=== PATIENT | female | born 2000 | race Caucasian/White ===

== ENCOUNTER 2024-04-16 17:11 | Outpatient (REF) | payer MEDICAID, SELFPAY ==
--- NOTE | 2024-04-16 13:45 | PAPFT_PTH ---
PATIENT: Leslye Ordoñez LOC: [facility] U#:[id number] AGE/SX: 23/F ROOM: RE04/16/[address]: Tsering Salinas : 2000 BED: DIS: 04/16/2024 SPEC #: [id number] RECD: 04/16/24 18:12 STATUS: KINGSLEY REQ #: [id number] XIAO: 04/16/24 13:[address]: Tsering Salinas DEPT: [facility] Cytology RECD BY: Linsey Asif ENTERED: 04/16/24 18:12 SP TYPE: PAPFT OTHR DR: Unknown,Unknown Tissues: 1 - CX/ENDOCX FOR PAP SMEARS Procedures: PAP THIN PREP/[facility] Screening Comments: [id number]
[2024-04-16 18:17] LABS: *AMPHETAMINES SCREEN URINE Negative (Negative); *BARBITURATES SCREEN URINE Negative (Negative); *BENZODIAZEPINES SCREEN URINE Negative (Negative); Cannabinoids THC Positive (Negative); Cocaine Screen,Urine Negative (Negative); METHADONE URINE SCREEN Negative (Negative); OPIATES URINE SCREEN Negative (Negative)
[2024-04-16 18:24] LABS: Tricyclic Antidepressants Negative (Negative)
[2024-04-18 14:05] LABS: Chlamydia Result Negative (Negative); GC Result Negative (Negative)
[2024-04-20 10:05] LABS: Fentanyl Scr w/Rfx Confirm Negative ng/mL (<1)
[2024-04-24 10:10] LABS: Buprenorphine Negative ng/mL (Cutoff: 5.0); Norbuprenorphine Negative ng/mL (Cutoff: 2.5)
== END 2024-04-16 17:12 | disposition home or self-care (01) ==
LOC: LBN 17:11
PROVIDERS: Visit Provider Advanced Practice Midwife
DX: F12.90 Cannabis use, unspecified, uncomplicated (principal); Z34.91 Encounter for supervision of normal pregnancy, unspecified, first trimester; Z3A.22 22 weeks gestation of pregnancy
CPT/HCPCS: 80307; 80348; 87491; 87591; 88142; 87086; 87480; 87510; 87660

== ENCOUNTER 2024-04-16 20:15 | Outpatient (CLI) | payer MEDICAID, SELFPAY | END 2024-04-16 20:16 | disposition home or self-care (01) | LOC: LBO 20:16 | PROVIDERS: Visit Provider Advanced Practice Midwife | DX: Z34.92 Encounter for supervision of normal pregnancy, unspecified, second trimester (principal); Z3A.22 22 weeks gestation of pregnancy | CPT/HCPCS: 36415; 81220; 81222; 86787; 86803; 86850; 86900; 86901; 87340; 87389; 85025; 86762; 86780 ==

== ENCOUNTER 2024-05-29 01:54 | Outpatient (CLI) | payer MEDICAID, SELFPAY ==
--- OUTSIDE RECORDS SUMMARY | 2024-05-29 02:17 | XMS_ITS | Clinical Summary ---
Author Organization [facility] Address [address] [place] [address] Care Team Providers Care [employer] Principal Name Role Phone Unavailable Primary Care Provider Unavailabl e Encounters Date Type Department Care Team Description 04/17/2024 Lab Requisition [facility] Pathology & Laboratory [address] [address] Tsering Salinas CNM Encounter for supervision of normal , unspecified, unspecified trimester 04/17/2024 Lab Requisition [facility] Pathology Laboratory [address] [address] Outr Resulting Lab, Provider 04/17/2024 Lab Requisition [facility] Pathology & Laboratory [address] [address] Outr Resulting Lab, Provider 04/16/2024 Lab Requisition [facility] Pathology Laboratory [address] [address] Outr Resulting Lab, Provider 04/16/2024 Lab Requisition [facility] Pathology & Laboratory [address] [address] Outr Resulting Lab, Provider 04/16/2024 Lab Requisition [facility] Pathology & Laboratory [address] [address] Outr Resulting Lab, Provider from Last 3 Months Social History Tobacco Use Types Packs/Day Years Used Date Smoking Tobacco: Never Assessed Sex and Gender Information Value Date Recorded Sex Assigned at Not on file Gender Identity Not on file Sexual Orientation Not on file Plan of Treatment Health Maintenance Due Date Last Done Comments Hepatitis B Vaccine (1 of 3 - 19+ 3-dose series) 09/20 COVID-19 Vaccine (2022-24 season) 2023 Hepatitis C Screen Completed 04/16/2024 Procedures Procedure Name Priority Date/Time Associated Diagnosis Comments HEPATITIS B SURFACE ANTIGEN Routine 04/16/2024 14:17 EDT HEPATITIS C AB W REFLEX TO HCV RNA BY PCR Routine 04/16/2024 14:17 EDT VARICELLA IGG ANTIBODY Routine 04/16/2024 14:17 EDT RUBELLA IGG ANTIBODY Routine 04/16/2024 14:17 EDT HIV 1/2 ANTIGEN AND ANTIBODY, 4TH GENERATION Routine 04/16/2024 14:17 EDT PAP TEST Today 04/16/2024 13:45 EDT Encounter for supervision of normal , unspecified, unspecified trimester FENTANYL SCREEN WITH REFLEX TO CONFIRMATION, U Routine 04/16/2024 13:30 EDT CHLAMYDIA/N. GONORRHOEAE AMPLIFIED NUCLEIC ACID Routine 04/16/2024 13:30 EDT from Last 3 Months Results * HEPATITIS C AB W REFLEX TO HCV RNA BY PCR (04/16/2024 14:17 EDT) Hep C Antibody Negative Negative 04/17/2024 9:34 EDT [facility] Blood VENOUS BLOOD / Unknown 04/16/2024 14:17 EDT 04/16/2024 21:49 EDT Provider Outr Resulting Lab CHEMISTRY & BLOOD GAS ORDERABLES [facility] [address] [place] [address] * RUBELLA IGG ANTIBODY (04/16/2024 14:17 EDT) Rubella IgG Ab Positive See Note 04/17/2024 13:34 EDT [facility] Comment:Positive for IgG ant ibodies to Rubella virus. Blood VENOUS BLOOD / Unknown 04/16/2024 14:17 EDT 04/16/2024 21:49 EDT Provider Outr Resulting Lab CHEMISTRY & BLOOD GAS ORDERABLES Performing Organization Address [facility] Co de Phone Number [facility] [address], [place] [phone] * HEPATITIS B SURFACE ANTIGEN (04/16/2024 14:17 EDT) Hep B Surface Ag Negative Negative 04/17/2024 8:52 EDT [facility] Blood VENOUS BLOOD / Unknown 04/16/2024 14:17 EDT 04/16/2024 21:49 EDT Provider Outr Resulting Lab CHEMISTRY & BLOOD GAS ORDERABLES Performing Organization Address [facility] Phone Number [facility] [address] [place] [phone] * VARICELLA IGG ANTIBODY (04/16/2024 14:17 EDT) Pathologist [facility] Varicella IgG Ab Negative See Note 04/17/2024 13:28 EDT [facility] Comment:Absence of detectabl e Varicella Zoster virus IgG antibodies. A negative result generally indicates no detectable antibody, but does not rule out acute infection. If VZV exposure is suspected, a second sample should be collected and tested no less than one or two weeks later. Blood VENOUS BLOOD / Unknown 04/16/2024 14:17 EDT 04/16/2024 21:49 EDT Provider Outr Resulting Lab IMMUNOLOGY A ND SEROLOGY ORDERABLES Performing Organization Address [facility] Co de Phone Number [facility] [address] [place] [phone] * HIV 1/2 ANTIGEN AND ANTIBODY, 4TH GENERATION (04/16/2024 14:17 EDT) Pathologist [facility] HIV 1 and 2 Antibody/p24 Antigen, 4th Generation Negative Negative 04/16/2024 23:30 EDT [facility] Comment:If acute HIV-1 infec tion is suspected in a high risk patient, submit plasma specimen for HIV-1 RNA quantitation test. Blood VENOUS BLOOD / Unknown 04/16/2024 14:17 EDT 04/16/2024 21:49 EDT Narrative [facility] - 04/16/2024 23:30 EDT Fourth Generation assay performed on the Siemens Centaur XPT. Provider Outr Resulting Lab IMMUNOLOGY A ND SEROLOGY ORDERABLES Performing Organization Address City/[facility]/ZIP Co de Phone Number [facility] [address] [place] [address] * PAP TEST (04/16/2024 13:45 EDT) Specimens A. Cervix and/or Endocervix , ThinPrep Imaging System with Manual Evaluation 04/22/2024 15:31 EDT [facility] Specimen Adequacy Satisfactory for Evaluation - transformation zone component absent 04/22/2024 15:31 EDT [facility] General Categorization Negative for intraepithelial lesion or malignancy 04/22/2024 15:31 EDT [facility] Attestation . 04/22/2024 15:31 T [facility] at 1531 Clinical History See below 04/22/20 15:31 EDT [facility] Performing Lab [facility] LAB 04/22/2024 15:31 EDT [facility] Scanned Images 04/22/2024 15:31 EDT [facility] Pap Test CERVIX UTERI STRUCTURE / Unknown 04/16/2024 13:45 EDT 04/17/2024 15:01 EDT Tsering Salinas [facility]Y ORDE ALESSANDRA Performing Organization Address City/[facility]/ZIP Co de Phone Number [facility] [address] [place] [address] * FENTANYL SCREEN WITH REFLEX TO CONFIRMATION, U (04/16/2024 13:30 EDT) Fentanyl Screen with Reflex to Confirmation, U Negative <1 ng/mL 04/20/2024 9:59 EDT [facility] Urine URINE / Unknown 04/16/2024 1 3:30 EDT 04/17/2024 17:31 EDT Narrative [facility] - 04/20/2024 9:59 EDT Testing performed by: [facility] [address] [facility], [address], [place] [address] Clothing Pattern Preparer: Karthik Joseph MD; CLIA # [id number] Provider Outr Resulting Lab URINALYSIS O RDERABLES Performing Organization Address City/[facility]/ZIP Co de Phone Number [facility] [address] [place] [address], [facility] [address] [phone] * CHLAMYDIA/N. GONORRHOEAE AMPLIFIED RNA (04/16/2024 13:30 EDT) Neisseria gonorrhoeae Result Negative Negative 04/18/2024 14:00 EDT [facility] Chlamydia trachomatis Result Negative Negative 04/18/2024 14:00 EDT [facility] Swab ENDOCERVICAL STRUCTURE / Unknown 04/16/2024 13:30 EDT 04/17/2024 17:40 EDT Provider Outr Resulting Lab MICROBIOLOGY - GENERAL ORDERABLES [facility] [address] [place] [address] from Last 3 Months
--- OUTSIDE RECORDS SUMMARY | 2024-05-29 02:17 | XMS_ITS | Encounter Summary ---
Author Organization [facility] Address [address] [place] [address] Care Team Providers Care Senior Safety Management Consultant Name Role Phone Unavailable Primary Care Provider Unavailabl e Encounter Details Date Type Department Care Team (Late st Contact Info) Description 04/17/2024 Lab Requisition [facility] Pathology & [facility] [address] [place] [address] [place], [place] [phone] Encounter for supervision of normal , unspecified, unspecified trimester Social History Tobacco Use Types Packs/Day Years Used Date Smoking Tobacco: Never Assessed Sex and Gender Information Value Date Recorded Sex Assigned at Not on file Gender Identity Not on file Sexual Orientation Not on file documented as of this encounter Plan of Treatment Not on file documented as of this encounter Procedures Procedure Name Priority Date/Time Associated Diagnosis Comments PAP TEST Today 04/16/2024 13:45 EDT Encounter for supervision of normal , unspecified, unspecified trimester documented in this encounter Results * PAP TEST (04/16/2024 13:45 EDT) Specimens A. Cervix and/or Endocervix , ThinPrep Imaging System with Manual Evaluation 04/22/2024 15:31 [facility] Specimen Adequacy Satisfactory for Evaluation - transformation zone component absent 04/22/2024 15:31 [facility] General Categorization Negative for intraepithelial lesion or malignancy 04/22/2024 15:31 [facility] Attestation . 04/22/2024 15:31 [facility] at 1531 Clinical History See below 06/19/20 24 15:31 [facility] Performing Lab [facility] 04/22/2024 15:31 EDT [facility] Scanned Images 04/22/2024 15:31 EDT [facility] Pap Test CERVIX UTERI STRUCTURE / Unknown 04/16/2024 13:45 EDT 04/17/2024 15:01 EDT Tsering Salinas [facility] PATHOLOGY ALEXANDRA APARICIO [facility] [address] [place] [address] documented in this encounter Visit Diagnoses Diagnosis Encounter for supervision of normal , unspecified, unspecified trimester documented in this encounter
--- OUTSIDE RECORDS SUMMARY | 2024-05-29 02:17 | XMS_ITS | Encounter Summary ---
Author Organization [facility] Address [address] [place] [address] Care Team Providers Care Cycle Repairer Name Role Phone Unavailable Primary Care Provider Unavailabl e Encounter Details Date Type Department Care Team (Late st Contact Info) Description 04/16/2024 Lab Requisition [facility] Pathology & Laboratory Medicine - [address] [address] Outr Resulting Lab, Provider Social History Tobacco Use Types Packs/Day Years Used Date Smoking Tobacco: Never Assessed Sex and Gender Information Value Date Recorded Sex Assigned at Not on file Gender Identity Not on file Sexual Orientation Not on file documented as of this encounter Plan of Treatment Not on file documented as of this encounter Procedures Procedure Name Priority Date/Time Associated Diagnosis Comments RUBELLA IGG ANTIBODY Routine 04/16/2024 14:17 EDT VARICELLA IGG ANTIBODY Routine 04/16/2024 14:17 EDT documented in this encounter Results * VARICELLA IGG ANTIBODY (04/16/2024 14:17 EDT) Varicella IgG Ab Negative See Note 04/17/2024 13:28 EDT [facility] Comment:Absence of detectabl e Varicella [...] Resulting Lab IMMUNOLOGY A ND SEROLOGY ORDERABLES [facility] [address] [place], [place] [phone] * RUBELLA IGG ANTIBODY (04/16/2024 14:17 EDT) Rubella IgG Ab Positive See Note 04/17/2024 13:34 EDT [facility] Comment:Positive for IgG ant ibodies to Rubella virus. Blood VENOUS BLOOD / Unknown 04/16/2024 14:17 EDT 04/16/2024 21:49 EDT Provider Outr Resulting Lab CHEMISTRY & BLOOD GAS ORDERABLES [facility] [address] [place], [place] [phone] documented in this encounter Visit Diagnoses Not on filedocumented in this encounter
--- OUTSIDE RECORDS SUMMARY | 2024-05-29 02:17 | XMS_ITS | Encounter Summary ---
Author Organization [facility] Address [address] [place] [address] Care Team Providers Care Geotechnical Operating Engineer Name Role Phone Unavailable Primary Care Provider Unavailabl e Encounter Details Date Type Department Care Team (Late st Contact Info) Description 04/16/2024 Lab Requisition [facility] Pathology & Laboratory Medicine - [address] [address] Outr Resulting Lab, Provider Social History Tobacco [...] Name Priority Date/Time Associated Diagnosis Comments HEPATITIS C AB W REFLEX TO HCV RNA BY PCR Routine 04/16/2024 14:17 EDT HEPATITIS B SURFACE ANTIGEN Routine 04/16/2024 14:17 EDT documented in this encounter Results * HEPATITIS B SURFACE ANTIGEN (04/16/2024 14:17 EDT) Hep B Surface Ag Negative Negative 04/17/2024 8:52 EDT [facility] Blood VENOUS BLOOD / Unknown 04/16/2024 14:17 EDT 04/16/2024 21:49 EDT Provider Outr Resulting Lab CHEMISTRY & BLOOD GAS ORDERABLES [facility] [address] [place], [place] [phone] * HEPATITIS C AB W REFLEX TO HCV RNA BY PCR (04/16/2024 14:17 EDT) Hep C Antibody Negative Negative 04/17/2024 9:34 EDT [facility] Blood VENOUS BLOOD / Unknown 04/16/2024 14:17 EDT 04/16/2024 21:49 EDT Provider Outr Resulting Lab CHEMISTRY & BLOOD GAS ORDERABLES [facility] [address] [place] [address] documented in this encounter Visit Diagnoses Not on filedocumented in this encounter
--- OUTSIDE RECORDS SUMMARY | 2024-05-29 02:17 | XMS_ITS | Referral Summary ---
Author Organization [facility] Address [address] [place] [address] Care Team Providers Care Saddle And Side Wire Stitcher Name Role Phone Unavailable Primary Care Provider Unavailabl e Encounters Date Type Department Care Team Description 04/17/2024 Lab Requisition [facility] Pathology & Laboratory [address] [address] Tsering Salinas CNM Encounter for supervision of normal , unspecified, unspecified trimester 04/17/2024 Lab Requisition [facility] Pathology & Laboratory [address] [address] Outr Resulting Lab, Provider 04/17/2024 Lab Requisition [facility] Pathology & Laboratory [address] [address] Outr Resulting Lab, Provider 04/16/2024 Lab Requisition [facility] Pathology Laboratory [address] [address] Outr Resulting Lab, Provider 04/16/2024 Lab Requisition [facility] Pathology & Laboratory [address] [address] Outr Resulting Lab, Provider 04/16/2024 Lab Requisition [facility] Pathology & Laboratory [address] [address] Outr Resulting Lab, Provider from Last 3 Months Social History Tobacco Use Types Packs/Day Years Used Date Smoking Tobacco: Never Assessed Sex and Gender Information Value Date Recorded Sex Assigned at Not on file Gender Identity Not on file Sexual Orientation Not on file Plan of Treatment Not on file Procedures Procedure Name Priority Date/Time Associated Diagnosis [...] C Antibody Negative Negative 04/17/2024 9:34 EDT [facility] Blood VENOUS BLOOD / Unknown 04/16/2024 14:17 EDT 04/16/2024 21:49 EDT Provider Outr Resulting Lab CHEMISTRY & BLOOD GAS ORDERABLES [facility] [address] [place] [address] * RUBELLA IGG ANTIBODY (04/16/2024 14:17 EDT) Rubella IgG Ab Positive See Note 04/17/2024 13:34 EDT [facility] Comment:Positive for IgG ant ibodies to Rubella virus. Blood VENOUS BLOOD / Unknown 04/16/2024 14:17 EDT 04/16/2024 21:49 EDT Provider Outr Resulting Lab CHEMISTRY & BLOOD GAS ORDERABLES Performing Organization Address [facility] Co de Phone Number [facility] [address] [place] [address] * HEPATITIS B SURFACE ANTIGEN (04/16/2024 14:17 EDT) Pathologist [facility] Hep B Surface Ag Negative Negative 04/17/2024 8:52 EDT [facility] Blood VENOUS BLOOD / Unknown 04/16/2024 14:17 EDT 04/16/2024 21:49 EDT Provider Outr Resulting Lab CHEMISTRY & BLOOD GAS ORDERABLES Performing Organization Address [facility] de Phone Number [facility] [address] [place] [address] * VARICELLA IGG ANTIBODY (04/16/2024 14:17 EDT) [facility] Varicella IgG Ab Negative See Note 04/17/2024 13:28 EDT [facility] Comment:Absence of detectabl e [...] A ND SEROLOGY ORDERABLES Performing Organization Address [facility] Co de Phone Number [facility] [address] [place], [place] [address] * HIV 1/2 ANTIGEN AND ANTIBODY, 4TH GENERATION (04/16/2024 14:17 EDT) Pathologist [facility] HIV 1 and 2 Antibody/p24 Antigen, 4th Generation Negative Negative 04/16/2024 23:30 EDT [facility] Comment:If acute HIV-1 infec tion is suspected in a high risk patient, submit plasma specimen for HIV-1 RNA quantitation test. Blood VENOUS BLOOD / Unknown 04/16/2024 14:17 EDT 04/16/2024 21:49 EDT Narrative [facility] - 04/16/2024 23:30 EDT Fourth Generation assay performed on the Siemens [place] EXTENDED STAYSaur XPT. Provider Outr Resulting Lab IMMUNOLOGY A ND SEROLOGY ORDERABLES Performing Organization Address [facility]/ZIP Co de Phone Number [facility] [address] [place] [address] * PAP TEST (04/16/2024 13:45 EDT) Specimens A. Cervix and/or Endocervix , ThinPrep Imaging System with Manual Evaluation 04/22/2024 15:31 EDT [facility] Specimen Adequacy Satisfactory for Evaluation - transformation zone component absent 04/22/2024 15:31 EDT [facility] General Categorization Negative for intraepithelial lesion or malignancy 04/22/2024 15:31 EDT [facility] Attestation . 04/22/2024 15:31 EDT [facility] at 1531 Clinical History See below 04/22/20 15:31 T [facility] Performing Lab [facility] [[email or web address] LAB 04/22/2024 15:31 T [facility] Scanned Images 04/22/2024 15:31 T [facility] Pap Test CERVIX UTERI STRUCTURE / Unknown 04/16/2024 13:45 EDT 04/17/2024 15:01 EDT Tsering Salinas [facility] PATHOLOGY ORDMarysol APARICIO Performing Organization Address [facility]/ZIP Co de Phone Number [facility] [address] [place] [address] * FENTANYL SCREEN WITH REFLEX TO CONFIRMATION, U (04/16/2024 13:30 EDT) Fentanyl Screen with Reflex to Confirmation, U Negative <1 ng/mL 04/20/2024 9:59 EDT [facility] Urine URINE / Unknown 04/16/2024 1 3:30 EDT 04/17/2024 17:31 EDT Narrative [facility] - 04/20/2024 9:59 EDT Testing performed by: [facility] [address], [address], [place] [address] Program Manager Rn: Karthik Joseph MD; CLIA # [id number] Provider Outr Resulting Lab URINALYSIS O RDERABLES [facility] [address] [place] [address], [facility] [address] [phone] * CHLAMYDIA/N. GONORRHOEAE AMPLIFIED RNA (04/16/2024 13:30 EDT) Neisseria gonorrhoeae Result Negative Negative 04/18/2024 14:00 EDT [facility] Chlamydia trachomatis Result Negative Negative 04/18/2024 14:00 EDT [facility] Swab ENDOCERVICAL STRUCTURE / Unknown 04/16/2024 13:30 EDT 04/17/2024 17:40 EDT Provider Outr Resulting Lab MICROBIOLOGY - GENERAL ORDERABLES [facility] [address] [place] [address] from Last 3 Months
--- OUTSIDE RECORDS SUMMARY | 2024-05-29 02:17 | XMS_ITS | Encounter Summary ---
Author Organization [facility] Address [address] [place] [id number] Care Team Providers Care Roofer Apprentice Name Role Phone Unavailable Primary Care Provider Unavailabl e Encounter Details Date Type Department Care Team (Late st Contact Info) Description 04/16/2024 Lab Requisition [facility] Pathology & Laboratory Medicine - [address] [address] Outr Resulting Lab, Provider Social History Tobacco [...] Procedure Name Priority Date/Time Associated Diagnosis Comments HIV 1/2 ANTIGEN AND ANTIBODY, 4TH GENERATION Routine 04/16/2024 14:17 EDT documented in this encounter Results * HIV 1/2 ANTIGEN AND ANTIBODY, 4TH GENERATION (04/16/2024 14:17 EDT) HIV 1 and 2 Antibody/p24 Antigen, 4th Generation Negative Negative 04/16/2024 23:30 EDT [facility] Comment:If acute HIV-1 infec tion is suspected in a high risk patient, submit plasma specimen for HIV-1 RNA quantitation test. Blood VENOUS BLOOD / Unknown 04/16/2024 14:17 EDT 04/16/2024 21:49 EDT Narrative [facility] - 04/16/2024 23:30 EDT Fourth Generation assay performed on the Siemens Centaur XPT. Provider Outr Resulting Lab IMMUNOLOGY A ND SEROLOGY ORDERABLES [facility] [address] [place] [address] documented in this encounter Visit Diagnoses Not on filedocumented in this encounter
--- OUTSIDE RECORDS SUMMARY | 2024-05-29 02:17 | XMS_ITS | Encounter Summary ---
Author Organization [facility] Address [address] [place] [address] Care Team Providers Care Cementer Helper Name Role Phone Unavailable Primary Care Provider Unavailabl e Encounter Details Date Type Department Care Team (Late st Contact Info) Description 04/17/2024 Lab Requisition [facility] Pathology & Laboratory Medicine - [facility] [address] [place], [place] [phone] Outr Resulting Lab, Provider Social History Tobacco [...] Procedure Name Priority Date/Time Associated Diagnosis Comments CHLAMYDIA/N. GONORRHOEAE AMPLIFIED NUCLEIC ACID Routine 04/16/2024 13:30 EDT documented in this encounter Results * CHLAMYDIA/N. GONORRHOEAE AMPLIFIED RNA (04/16/2024 13:30 EDT) Neisseria gonorrhoeae Result Negative Negative 04/18/2024 14:00 EDT [facility] Chlamydia trachomatis Result Negative Negative 04/18/2024 14:00 EDT [facility] Swab ENDOCERVICAL STRUCTURE / Unknown 04/16/2024 13:30 EDT 04/17/2024 17:40 EDT Provider Outr Resulting Lab MICROBIOLOGY - GENERAL ORDERABLES [facility] [address] [place], [place] [address] documented in this encounter Visit Diagnoses Not on filedocumented in this encounter
--- OUTSIDE RECORDS SUMMARY | 2024-05-29 02:17 | XMS_ITS | Encounter Summary ---
Author Organization [facility] Address [address] [place] [address] Care Team Providers Care Working Foreman Name Role Phone Unavailable Primary Care Provider Unavailabl e Encounter Details Date Type Department Care Team (Late st Contact Info) Description 04/17/2024 Lab Requisition [facility] Pathology & Laboratory Medicine - [facility] [address] [place] [address] Outr Resulting Lab, Provider Social History Tobacco [...] Procedure Name Priority Date/Time Associated Diagnosis Comments FENTANYL SCREEN WITH REFLEX TO CONFIRMATION, U Routine 04/16/2024 13:30 EDT documented in this encounter Results * FENTANYL SCREEN WITH REFLEX TO CONFIRMATION, U (04/16/2024 13:30 EDT) Fentanyl Screen with Reflex to Confirmation, U Negative <1 ng/mL 04/20/2024 9:59 EDT [facility] Urine URINE / Unknown 04/16/2024 1 3:30 EDT 04/17/2024 17:31 EDT Narrative [facility] - 04/20/2024 9:59 EDT Testing performed by: [facility] [address] [place] [address], [facility] [address] [address] Time Clock Repairer: Karthik Joseph MD; CLIA # [id number] Provider Outr Resulting Lab URINALYSIS O RDERABLES [facility] [address] [facility], [address] [phone] documented in this encounter Visit Diagnoses Not on filedocumented in this encounter
[2024-05-29 09:53] LABS: HCT 33.5 % (36.0-46.0); HGB 11.2 g/dL (11.2-15.7); MCH 33.4 pg (27.0-33.0); MCHC 33.4 % (32.0-36.0); MCV 100 fL (80-95); MPV 10.1 fL (8.0-11.0); Platelet Count 266 10^3/uL (130-400); RBC 3.35 10^6/uL (3.93-5.22); RDW 12.9 % (11.7-14.6); RDW-SD 46.7 fL; WBC 13.27 10^3/uL (4.4-10.8)
[2024-05-29 10:08] LABS: Glucose,1 Hr (Glucola) 88 mg/dL (80-140)
== END 2024-05-29 01:55 | disposition home or self-care (01) ==
LOC: LBO 01:55
PROVIDERS: Visit Provider Obstetrics & Gynecology Gynecology
DX: Z34.93 Encounter for supervision of normal pregnancy, unspecified, third trimester (principal)
CPT/HCPCS: 36415; 82950; 85027

== ENCOUNTER 2024-05-29 09:14 | Outpatient (REF) | payer MEDICAID, SELFPAY ==
[2024-05-29 12:18] LABS: *AMPHETAMINES SCREEN URINE Negative (Negative); *BARBITURATES SCREEN URINE Negative (Negative); *BENZODIAZEPINES SCREEN URINE Negative (Negative); Cannabinoids THC Positive (Negative); Cocaine Screen,Urine Negative (Negative); METHADONE URINE SCREEN Negative (Negative); OPIATES URINE SCREEN Negative (Negative)
[2024-05-29 12:27] LABS: Tricyclic Antidepressants Negative (Negative)
[2024-06-01 09:41] LABS: Fentanyl Scr w/Rfx Confirm Negative ng/mL (<1)
[2024-06-06 12:59] LABS: Buprenorphine Negative ng/mL (Cutoff: 5.0); Norbuprenorphine Negative ng/mL (Cutoff: 2.5)
== END 2024-05-29 09:15 | disposition home or self-care (01) ==
LOC: LBN 09:14
PROVIDERS: Advanced Practice Midwife; Visit Provider Obstetrics & Gynecology
DX: Z34.90 Encounter for supervision of normal pregnancy, unspecified, unspecified trimester (principal)
CPT/HCPCS: 80307; 80348

== ENCOUNTER 2024-07-16 15:21 | Outpatient (REF) | payer MEDICAID, SELFPAY | END 2024-07-16 15:22 | disposition home or self-care (01) | LOC: LBN 15:21 | PROVIDERS: Visit Provider Advanced Practice Midwife | DX: Z34.93 Encounter for supervision of normal pregnancy, unspecified, third trimester (principal); Z3A.35 35 weeks gestation of pregnancy | CPT/HCPCS: 87081 ==

== ENCOUNTER 2024-07-24 14:41 | Outpatient (REF) | payer MEDICAID, SELFPAY ==
[2024-07-24 17:30] LABS: *AMPHETAMINES SCREEN URINE Negative (Negative); *BARBITURATES SCREEN URINE Negative (Negative); *BENZODIAZEPINES SCREEN URINE Negative (Negative); Cannabinoids THC Negative (Negative); Cocaine Screen,Urine Negative (Negative); METHADONE URINE SCREEN Negative (Negative); OPIATES URINE SCREEN Negative (Negative); Tricyclic Antidepressants Negative (Negative)
== END 2024-07-24 14:42 | disposition home or self-care (01) ==
LOC: LBN 14:41
PROVIDERS: Visit Provider Advanced Practice Midwife
DX: F12.90 Cannabis use, unspecified, uncomplicated (principal)
CPT/HCPCS: 80307

== ENCOUNTER 2024-08-13 01:05 | Outpatient (CLI) | payer MEDICAID, SELFPAY ==
--- NOTE | 2024-08-13 12:24 | DI.US_ITS ---
Exam(s) US OB ASHISH WEIGHT EXAM: US OB ASHISH WEIGHT CLINICAL HISTORY: size greater than dates,Z34.90. TECHNIQUE: Transabdominal obstetrical ultrasound was performed. COMPARISON: US US OB 2-3 TRIMESTER from 04/21/2024 FINDINGS: There is a single viable intrauterine gestation with cardiac activity identified-140 bpm The fetus is presently in cephalic position . Amniotic fluid: There is a normal amount of amniotic fluid with an ASHISH of 14.45cm. Placental location: The placenta is posterior,with no evidence of placenta previa. Dating parameters place this at approximately 38 weeks and 6 days gestational age, implying JOSELITO of 08/21/2024. BPD measures 39 weeks and 1 day HC measures 37 weeks and 6 days AC measures 39 weeks and 1 day FL measures 39 weeks and 3 days Estimated weight is 3684 gm-a pounds 2 ounces Fetus is at the 62nd percentile on the Hadlock scale. IMPRESSION:: Viable 3rd trimester gestation, as described above. DATA REPOSITORY:
[2024-08-23 11:29] VITALS: BP 125/77; PULSE 95; TEMP 36.8
== END 2024-08-13 01:25 ==
LOC: DI 01:05
PROVIDERS: Visit Provider Advanced Practice Midwife
DX: Z34.93 Encounter for supervision of normal pregnancy, unspecified, third trimester (principal); Z3A.37 37 weeks gestation of pregnancy
CPT/HCPCS: 76816

== ENCOUNTER 2024-08-23 11:40 | Observation (INO) | payer MEDICAID, SELFPAY ==
[2024-08-23 11:45] VITALS: BP 125/77; PULSE 95; RESP 16; TEMP 36.8; O2SAT 99
--- NOTE | 2024-08-23 12:32 | HPE_ITS ---
Date of service: 08/23/24 Time of Service: 12:32 Assessment and Plan Assessment and plan (1) Uterine contractions: Status: Acute Assessment and plan: A: 23 yo G1 @ 41 wks, spontaneous onset contractions, early labor GBS neg, TWG 43 lb, nml glucola screen Low risk for PPH, increased risk for SD due to primipara, wt gain and postdates Category 1 tracing, poor maternal coping with discomforts P: Outpt observation for labor progression, oral hydration and comfort techniques Consider therapeutic rest vs early epidural if maternal coping further degenerates Due to postdate status may consider IOL when unit volume/acuity allows (2) 41 weeks gestation of : Status: Acute OB-HPI Labor/Delivery History of Present Illness Reason for Visit: NST Chief Complaint: Uterine Contractions (painful contractions since 0930 every 4-5 minutes, no bleeding, no ROM). JOSELITO Calculator Estimated Delivery Date Method Current WG Current Estimate 08/16/24 Ultrasound #1 41w 0d History of Present Expected Delivery Route/Plan - MAYRA LANGB/carolina Coles Varicella non -immune, pt plans vaccine Plans epidural & formula feeding (informed choice) support team is FOB and his mom Megan GBS negative Would like mirena IUD after delivery. Specific Issues/Plan 1. Late entry to care at 22 wks, taking oral contraceptives until 22 wks. 2. MJ use but quit, denies alcohol use, UDS +THC. Repeat @ 28 wks=THC+, POSC 06/26/24 2a, UDS at 36 wks is negative 3. cfDNA: low risk x5, gender not reported. CF: ordered but never processed and sent. 4. Growth scan @ 39 wks in 62nd percentile, ASHISH 14, cephalic presentation Assessment: History Reviewed & Current Review of Systems Narrative: ROS noncontributory other than HPI PFSH All Active Problems (Updated 08/23/24 @ 12:39 by Jayne De La Garza) 41 weeks gestation of (Acute) Uterine contractions (Acute) Susceptible to varicella (non-immune), currently (Acute) Marijuana use (Acute) Anxiety (Chronic) (Acute) Medical History (Updated 08/23/24 @ 12:39 by Jayne De La Garza) Asthma Family History (Updated 04/16/24 @ 13:06 by Tsering Salinas CNM) Maternal Aunt Breast cancer Mother Back pain Father Anxiety Social History (Updated 05/16/24 @ 11:13 by Che Escobar MD) Smoking risk assessment performed?: No Household members: significant other, family and other Details: Jose Angel, his aunt and her family. Number of Children: 0 Education Level: high school Details: didn't enjoy school-would read science fiction during math class. current occupation: [employer]. [place] between jobs. Additional Social history: Raised in [facility]. Mom when she was 11yo, drug related. She was oldest of 3 three siblings whom she took care of. Stepfather remarried and moved to [place]. Raised by [facility]. Met Terrance in , his dad when he was 11yo. They described themselves as initially trauma bud dies. His aunt moved to [place] and her and Leslye moved with them. History History 1 Para 0 Hx # Term Pregnancies 0 Multiple births 0 Hx # Pregnancies 0 Ectopic pregnancies 0 AB induced 0 Hx Number of Living Children 0 AB spontaneous 0 Meds Allergies and Home Medications Allergies Allergy/AdvReac Type Severity Reaction Status Date / Time No Known Allergies Allergy Verified 08/20/24 11:27 Home Medications ?Medication ?Instructions ?Recorded ?Confirmed ?Type vitamin with calcium 1 tab PO DAILY #90 tabs 06/26/24 08/23/24 Rx no.72-iron 27 mg-folic acid 1 mg tablet ( Plus (calcium carbonate)) Exam Physical Exam Vital Signs Reviewed: Yes Constitutional Constitutional: mild distress, average body habitus and cooperative Detailed Labor and Delivery Exam Dilation: 1 Effacement (%): 60 station: -2 Cervix position: posterior Consistency: medium Chiu Score: Cervical Points Exam 0 1 2 3 Dilation Closed 1-2cm 3-4 cm 5-6cm Effacement 0-30% 40-50% 60-70% 80% Consistency Firm Medium Soft Station -3 -2 -1,0 +1,+2 Position Posterior Mid Anterior CHIU Score(Cervical Ripeness Score): 5 Amniotic Membrane Status: Intact Contraction Frequency(min): irregular Contraction Intensity: Mild Fetus A Heart Rate Baseline: 140 Monitor Accelerations: Present Monitor Decelerations: None Variability: Moderate (6-25 BPM) Categories: Category I Est. Weight: 8 lb 7.805 oz Est. Weight: 3850 gms HEENT Exam HEENT Exam: Normal Neck Exam Neck Exam: Normal Chest/Brest/Axilla Exam Chest Exam: Normal Breast Exam Breast Exam: Not Done Respiratory Exam Respiratory Exam: Normal Cardiovascular Exam Cardiovascular Exam: Normal Abdominal Exam Abdominal Exam: Normal (gravid, soft) Rectal Exam Rectal Exam: Normal Exam Exam: Normal Extremities Exam Extremities Exam: Normal Back/Spine/Pelvis Exam Back Exam: Normal Pelvis Adequate: Yes Skin Exam Skin Exam: Normal Neurological Exam Neurological Exam: Normal Psychiatric Exam Psychiatric Exam: Normal Results Results Group Beta Strep: Negative Blood Type: B+ Rubella Status: Immune Varicella Immunity: Nonimmune Lab Results: 28 wk glucola=88 Risk Assessment Risk for Shoulder Dystocia Historical/Initial OB: NEGATIVE FOR: Pelvic Abnormality, Pre- BMI>30, Previous Shoulder Dystocia or Previous Macrosomia 36 Weeks: NEGATIVE FOR: Current Gestational DM, EFW>4500gms or Maternal Weight Gain>40lbs 40 Weeks: POSTIVE FOR: Maternal Weight Gain >40lb and Post Dates; NEGATIVE FOR: EFW> 4500 gms Increased Risk?: Yes Delivery Plan @ 36wks: Delivery Plan @ 40 wks: Risk for Pre-Eclampsia Yes, if one or more: NEGATIVE FOR: Hx Pre-E/Gest HTN, Chronic HTN, Multiple Gestation, Pre-gestational DM, Renal Disease, Systemic Lupus or APA Syndrome Yes, if 2 or more: POSITIVE FOR: Nulliparity; NEGATIVE FOR: Age>= 35 yrs, >10yr btwn pregnancies, BMI>30, ethinicty, Mother/Sister w/ Pre-E or Previous IUGR Risk for Post- Hemorrhage Initial: NEGATIVE FOR: Multiple Gestation, Previous PPH, Known Clotting Deficiency, Grand Multiparity or Anticoagulation 36 Weeks: NEGATIVE FOR: Anemia, hgb<10, Low platelets(thrombocytopenia), Gestational HTN or Pre-E, Polyhydraminios or EFW>4500gms 40 Weeks: NEGATIVE FOR: Anemia, hgb<10, Low platelets (thrombocytopenia), Gestation HTN or Pre-E, Polyhydraminios or EFW>4500gms At Risk?: No Counseled re: Active Management: Yes Risks Reviewed Risks Reviewed Upon Admission: Yes
--- NOTE | 2024-08-23 14:56 | W.PM.OBNL1 ---
Date of service: 08/23/24 Time of Service: 14:56 Informed Consent Informed Consent: Other (therapeutic rest) Pelvic Exam Dilation: 1 Effacement (%): 90 station: -3 Cervix Position: posterior Contractions Contraction Frequency(min): irregular, q3-6 Intensity: Mild Fetus A Monitor: Doppler Heart Rate Baseline: 140 FHR Rhythm: Regular Characteristics: Normal Amniotic Membrane Status: Intact Assessment and Plan Assessment and plan (1) Uterine contractions: Status: Acute Assessment and plan: A: prodromal phase; reassuring status per doptone therapeutic rest this afternoon at pt request P: morphine 10 mg SQ now re-evaluate for progress toward active labor when pt wakes up Objective 125/77, afebrile, p-77 Vital Signs Reviewed: Yes Subjective Interval history since last seen: Pt ate a subway sandwich for lunch and tolerated well, soaked in the tub which was comforting, now states she is feeling tired and wants to sleep but contractions seem to be more painful so she is requesting medication for rest. Advised if she desires therapeutic rest then visitors other than primary support are discouraged so she can sleep.
[2024-08-23 15:00] VITALS: BP 104/69; PULSE 91; RESP 18; TEMP 36.6; O2SAT 99
[2024-08-23] MEDS: MORPHine 10 MG/ML VIAL SC (15:17)
[2024-08-23] MEDS: Calcium Carbonate *TUMS* 500 MG CHEW 1000 MG PO (17:38)
[2024-08-23 19:30] VITALS: BP 112/78; PULSE 87; RESP 16; TEMP 36.8; O2SAT 99
--- NOTE | 2024-08-23 19:45 | W.PM.OBNL1 ---
Date of service: 08/23/24 Time of Service: 19:45 Pelvic Exam Comments: deferred Contractions Monitor Mode: Palpation Contraction Frequency(min): 1 per 10 minutes Intensity: Mild Fetus A Monitor: Doppler Heart Rate Baseline: 128 FHR Rhythm: Regular Characteristics: Normal Amniotic Membrane Status: Intact Assessment and Plan Assessment and plan (1) Uterine contractions: Status: Acute Assessment and plan: A: Prodromal sx, s/p morphine rest No progression toward active labor, pt rested and comfortable, tolerating oral intake well P: Options for staying overnight vs. going home and returning for IOL in morning discussed with pt Pt prefers to go home and rest, desires sleep aid prior to discharge Will return 0900 for post dates IOL tomorrow Objective Temp Pulse Resp BP Pulse Ox 98.2 F 87 16 112/78 99 08/23/24 19:30 08/23/24 19:30 08/23/24 19:30 08/23/24 19:30 08/23/24 19:30 Vital Signs Reviewed: Yes Subjective Interval history since last seen: Pt slept on and off after morphine was given, contractions are mild and irregular now, pt looking forward to [place] [employer] for dinner. Discussed choice of scheduled IOL for post dates in the morning versus ASHISH/NST in hopes of waiting for spontaneous labor, pt prefers scheduled IOL tomorrow, will go home tonight to sleep and return 0900.
[2024-08-23 19:47] VITALS: BP 125/77; PULSE 84
--- NOTE | 2024-08-23 19:54 | W.PM.OBDISCH ---
Date of service: 08/23/24 Time of Service: 19:54 DS: Diagnosis Discharge Diagnosis (1) Uterine contractions: Status: Acute Discharge Plan Disposition Patient Disposition: Home Condition: Good Discharge Details Reason For Visit: NST Admit Date/Time: 08/23/24 11:40 Admit Provider: Jayne De La Garza Attending Provider: Jayne De La Garza Primary Care Provider: Unknown,Unknown Hospital Course Hospital Course: Oupt observation for labor, no labor achieved, discharge to home. plan IOL tomorrow Home Meds and New Rx's Prescriptions: No Action Plus (calcium carb) 27 mg iron- 1 mg tablet 1 tab PO DAILY Qty: 90 0RF Discharge Instructions Stand Alone Forms: Center Observation Activity:: Activity as Tolerated Equipment/Supplies:: No Equipment Needed Diet:: Normal Diet Discharge Orders Discharge Orders: Discharge Order (Routine); Ordered 08/23/24 Ordered By: Jayne De La Garza OB:DS Summary Contraception Discussed Contraception Discussed: No (discharged undelivered), Status at Discharge Functional status at discharge: independent ambulation Overall status at discharge: patient is back to baseline Mental Status: mental status grossly normal Speech and Movement: speech and movement normal and speech clear Mood: congruent mood Affect: normal affect Quality:SDOH Health Related Social Needs: No Data to Display Exam Physical Exam Vital signs: Temp Pulse Resp BP Pulse Ox 98.2 F 87 16 112/78 99 08/23/24 19:30 08/23/24 19:30 08/23/24 19:30 08/23/24 19:30 08/23/24 19:30 Constitutional Constitutional: mild distress, average body habitus and cooperative HEENT Exam HEENT Exam: Normal Neck Exam Neck Exam: Normal Respiratory Exam Respiratory Exam: Normal Cardiovascular Exam Cardiovascular Exam: Normal Rectal Exam Rectal Exam: Normal Back/Spine/Pelvis Exam Back Exam: Normal Skin Exam Skin Exam: Normal Neurological Exam Neurological Exam: Normal Psychiatric Exam Psychiatric Exam: Normal Additional findings Additional findings: deferred PFSH All Active Problems (Updated 08/23/24 @ 12:39 by Jayne De La Garza) 41 weeks gestation of (Acute) Uterine contractions (Acute) Susceptible to varicella (non-immune), currently (Acute) Marijuana use (Acute) Anxiety (Chronic) (Acute) Medical History (Updated 08/23/24 @ 12:39 by Jayne De La Garza) Asthma Family History (Updated 04/16/24 @ 13:06 by Tsering Salinas CNM) Maternal Aunt Breast cancer Mother Back pain Father Anxiety Social History (Updated 05/16/24 @ 11:13 by Che Escobar MD) Smoking risk assessment performed?: No Household members: significant other, family and other Details: BING-Terrance, his aunt and her family. Number of Children: 0 Education Level: high school Details: didn't enjoy school-would read science fiction during math class. current occupation: [employer] between jobs. Additional Social history: Raised in [facility]. Mom when she was 11yo, drug related. She was oldest of 3 three siblings whom she took care of. Stepfather remarried and moved to [place]. Raised by [facility]. Met Terrance in , his dad when he was 11yo. They described themselves as initially trauma buddies. His aunt moved to [place] and her and Leslye moved with them. History History 1 Para 0 Hx # Term Pregnancies 0 Multiple births 0 Hx # Pregnancies 0 Ectopic pregnancies 0 AB induced 0 Hx Number of Living Children 0 AB spontaneous 0 DS: Data Vitals/I&O Vitals and I&O: Vital Signs Temperature 98.2 F 08/23/24 19:30 Temperature Source Oral 08/23/24 19:30 Pulse 87 08/23/24 19:30 Pulse 84 08/23/24 19:47 Pulse Rhythm Regular 08/23/24 19:15 Respiratory Rate 16 08/23/24 19:30 Blood Pressure 112/78 08/23/24 19:30 Blood Pressure 125/77 08/23/24 19:47 Blood Pressure Mean 89 08/23/24 19:30 Pulse Oximetry 99 08/23/24 19:30 Oxygen Delivery Method Room Air 08/23/24 11:45 Oxygen Flow Rate 0 08/23/24 11:45 Pain Level 8 08/23/24 11:45 Intake & Output 08/22/24 08/23/24 08/23/24 23:59 11:59 23:59 Weight 180 lb Other: Urine Color Yellow Yellow
--- NOTE | 2024-08-23 19:55 | W.OBNST ---
Date of service: 08/23/24 Time of Service: 13:00 NST Evaluation Reason for NST Reasons for Nonstress Test: FALSE LABOR and OTHER, SEE COMMENT Gestational Age Gestational Age in Weeks and Days: 41 Weeks and 0Days Test and Monitor Explained Test/Monitor Explained: Test Explained, Monitor Explained and Patient Verbalized Understanding Vital Signs Blood Pressure: 125/77 Pulse: 84 NST Information Date on Monitor: 08/23/24 Time on Monitor: 11:02 Date off Monitor: 08/23/24 Time off Monitor: 11:48 Total Time on Monitor: 46 NST Interventions: PO Hydration Contraction Frequency: 3-5 NST Evaluation Patient States Movement: Present FHR Baseline: 125 Variability: Moderate 6-25 bpm Accelerations: 15x15 Decelerations: None NST Results: Reactive Note Ultrasound Done: N/A. NST Note NST Reviewed and Verified by: Jayne De La Garza
[2024-08-23 19:56] VITALS: BP 125/77; PULSE 84
[2024-08-23] MEDS: Zolpidem 10 MG TAB PO (19:56)
== END 2024-08-23 19:59 | disposition home or self-care (01) ==
LOC: BCD 12:13 → OBS 12:13
PROVIDERS: Admitting Provider Advanced Practice Midwife; Visit Provider Advanced Practice Midwife
DX: O47.1 False labor at or after 37 completed weeks of gestation (principal); O48.0 Post-term pregnancy; Z3A.41 41 weeks gestation of pregnancy; O99.343 Other mental disorders complicating pregnancy, third trimester; O99.323 Drug use complicating pregnancy, third trimester; F12.90 Cannabis use, unspecified, uncomplicated
CPT/HCPCS: 59025; 96372; J2270

== ENCOUNTER 2024-08-24 06:44 | Inpatient (IN) | payer MEDICAID, SELFPAY ==
[2024-08-24] VITALS (34 sets, daily range): BP systolic 105–140; BP diastolic 57–98; PULSE 80–112; RESP 14–20; TEMP 36.6–37; O2SAT 95–99; BMI 31.1
--- NOTE | 2024-08-24 08:11 | W.PM.OBHPL1 ---
Date of service: 08/24/24 Time of Service: 08:15 Assessment and Plan Assessment and plan (1) Encounter for induction of labor: Status: Acute Assessment and plan: A: 23 yo G1 @ 41+1 wks, planned IOL for postdates; Chiu score is 7 Lengthy prodromal phase which pt has tolerated poorly, desires epidural s/p morphine rest yesterday, home last night with Ambien but didn't sleep well Category 1 tracing, GBS neg, increased risk for SD and PPH P: Admit to BC, CBC, T&S, anesthesia notified of request for early epidural Plan pitocin induction and AROM when pt is more comfortable Dr. Marquez consulting (2) 41 weeks gestation of : Status: Acute OB-HPI Labor/Delivery History of Present Illness Reason for Visit: labor Chief Complaint: Uterine Contractions; Scheduled Induction of Labor (pt accompanied by FOB/ for support) Indication for Induction: Post Date. JOSELITO Calculator Estimated Delivery Date Method Current WG Current Estimate 08/16/24 Ultrasound #1 41w 1d History of Present Expected Delivery Route/Plan - CNM FOB/carolina Coles Varicella non -immune, pt plans vaccine Plans epidural & formula feeding (informed choice) support team is FOB and his mom Megan GBS negative Would like mirena IUD after delivery. Specific Issues/Plan 1. Late entry to care at 22 wks, taking oral contraceptives until 22 wks. 2. MJ use but quit, denies alcohol use, UDS +THC. Repeat @ 28 wks=THC+, POSC 06/26/24 2a, UDS at 36 wks is negative 3. cfDNA: low risk x5, gender not reported. CF: ordered but never processed and sent. 4. Growth scan @ 39 wks in 62nd percentile, ASHISH 14, cephalic presentation Assessment: History Reviewed & Current Informed Consent Informed Consent: Induction of Labor, Regional Anesthesia and Risk,Benefits,Alternatives Discussed Review of Systems Narrative: ROS noncontributory other than HPI PFSH All Active Problems (Updated 08/24/24 @ 08:31 by Jayne De La Garza) Encounter for induction of labor (Acute) 41 weeks gestation of (Acute) Susceptible to varicella (non-immune), currently (Acute) Marijuana use (Acute) Anxiety (Chronic) (Acute) Medical History (Updated 08/24/24 @ 08:31 by Jayne De La Garza) Asthma Family History (Updated 04/16/24 @ 13:06 by Tsering Salinas CNM) Maternal Aunt Breast cancer Mother Back pain Father Anxiety Social History (Updated 05/16/24 @ 11:13 by Che Escobar MD) Smoking risk assessment performed?: No Household members: significant other, family and other Details: SO-Terrance, his aunt and her family. Number of Children: 0 Education Level: high school Details: didn't enjoy school-would read science fiction during math class. current occupation: [employer]. Terrance between jobs. Additional Social history: Raised in [facility]. Mom when she was 11yo, drug related. She was oldest of 3 three siblings whom she took care of. Stepfather remarried and moved to [place]. Raised by [facility]. Met Terrance in , his dad when he was 11yo. They described themselves as initially trauma buddies. His aunt moved to [place] and her and Leslye moved with them. History History 1 Para 0 Hx # Term Pregnancies 0 Multiple births 0 Hx # Pregnancies 0 Ectopic pregnancies 0 AB induced 0 Hx Number of Living Children 0 AB spontaneous 0 Meds Allergies and Home Medications Allergies Allergy/AdvReac Type Severity Reaction Status Date / Time No Known Allergies Allergy Verified 08/20/24 11:27 Home Medications ?Medication ?Instructions ?Recorded ?Confirmed ?Type vitamin with calcium 1 tab PO DAILY #90 tabs 06/26/24 08/23/24 Rx no.72-iron 27 mg-folic acid 1 mg tablet ( Plus (calcium carbonate)) Exam Physical Exam Vital signs: Temp Pulse Resp BP 98.1 F 82 20 112/78 08/24/24 06:45 08/24/24 08:08 08/24/24 06:59 08/24/24 08:08 Vital Signs Reviewed: Yes Constitutional Constitutional: moderate distress and cooperative Detailed Labor and Delivery Exam Dilation: 1 Effacement (%): 100 station: -3 Position: LOP Cervix position: mid Consistency: soft Chiu Score: Cervical Points Exam 0 1 2 3 Dilation Closed 1-2cm 3-4 cm 5-6cm Effacement 0-30% 40-50% 60-70% 80% Consistency Firm Medium Soft Station -3 -2 -1,0 +1,+2 Position Posterior Mid Anterior CHIU Score(Cervical Ripeness Score): 7 Amniotic Membrane Status: Intact Contraction Frequency(min): 1-2 in 10 minutes Contraction Intensity: Mild Fetus A Heart Rate Baseline: 130 Monitor Accelerations: Present Monitor Decelerations: None Variability: Moderate (6-25 BPM) Categories: Category I Est. Weight: 8 lb 6.041 oz Est. Weight: 3800 gms HEENT Exam HEENT Exam: Normal Neck Exam Neck Exam: Normal Chest/Brest/Axilla Exam Chest Exam: Normal Breast Exam Breast Exam: Not Done Respiratory Exam Respiratory Exam: Normal Cardiovascular Exam Cardiovascular Exam: Normal Abdominal Exam Abdominal Exam: Normal (Gravid, nontender) Rectal Exam Rectal Exam: Normal Exam Exam: Normal Extremities Exam Extremities Exam: Normal Back/Spine/Pelvis Exam Back Exam: Normal Pelvis Adequate: Yes Skin Exam Skin Exam: Normal Neurological Exam Neurological Exam: Normal Psychiatric Exam Psychiatric Exam: Abnormal (anxious, crying and writhing with contractions, tired) Results Results Group Beta Strep: Negative Blood Type: B+ Rubella Status: Immune Varicella Immunity: Nonimmune Risk Assessment Risk for Shoulder Dystocia Historical/Initial OB: NEGATIVE FOR: Pelvic Abnormality, Pre- BMI>30, Previous Shoulder Dystocia or Previous Macrosomia 36 Weeks: NEGATIVE FOR: Current Gestational DM, EFW>4500gms or Maternal Weight Gain>40lbs 40 Weeks: POSTIVE FOR: Maternal Weight Gain >40lb and Post Dates; NEGATIVE FOR: EFW> 4500 gms Increased Risk?: Yes Delivery Plan @ 36wks: Delivery Plan @ 40 wks: Risk for Pre-Eclampsia Yes, if one or more: NEGATIVE FOR: Hx Pre-E/Gest HTN, Chronic HTN, Multiple Gestation, Pre-gestational DM, Renal Disease, Systemic Lupus or APA Syndrome Yes, if 2 or more: POSITIVE FOR: Nulliparity; NEGATIVE FOR: Age>= 35 yrs, >10yr btwn pregnancies, BMI>30, ethinicty, Mother/Sister w/ Pre-E or Previous IUGR Risk for Post- Hemorrhage Initial: NEGATIVE FOR: Multiple Gestation, Previous PPH, Known Clotting Deficiency, Grand Multiparity or Anticoagulation 36 Weeks: NEGATIVE FOR: Anemia, hgb<10, Low platelets(thrombocytopenia), Gestational HTN or Pre-E, Polyhydraminios or EFW>4500gms 40 Weeks: NEGATIVE FOR: Anemia, hgb<10, Low platelets (thrombocytopenia), Gestation HTN or Pre-E, Polyhydraminios or EFW>4500gms At Risk?: Yes (due to prolonged prodrome and IOL process) Counseled re: Active Management: Yes Risks Reviewed Risks Reviewed Upon Admission: Yes
[2024-08-24 08:28] LABS: HCT 36.5 % (36.0-46.0); HGB 12.7 g/dL (11.2-15.7); MCH 33.6 pg (27.0-33.0); MCHC 34.8 % (32.0-36.0); MCV 97 fL (80-95); Platelet Count 224 10^3/uL (130-400); RBC 3.78 10^6/uL (3.93-5.22); RDW 12.9 % (11.7-14.6); RDW-SD 45.7 fL; WBC 15.31 10^3/uL (4.4-10.8)
[2024-08-24] MEDS: Normal Saline Flush 10 ML SYR IVP (09:20)
[2024-08-24] MEDS: Lactated Ringers 1,000 ML 125 ML IV ×4 (10:20→22:31)
--- NOTE | 2024-08-24 11:30 | ANES.PREOP_ITS ---
General Info Date of Service Date Performed: 08/24/24 Height: 5 ft 2 in Weight: 77.111 kg Body Mass Index (BMI): 31.1 Meds Allergies and Home Medications Allergies Allergy/AdvReac Type Severity Reaction Status Date / Time No Known Allergies Allergy Verified 08/20/24 11:27 Home Medication ?Medication ?Instructions ?Recorded vitamin with calcium 1 tab PO DAILY #90 tabs 06/26/24 no.72-iron 27 mg-folic acid 1 mg tablet ( Plus (calcium carbonate)) Current Visit Medications: Current Medications Generic Name Dose Route Start Last Admin Trade Name Freq PRN Reason Stop Dose Admin IV Miscellaneous Supplies 1 each 08/24/24 08:15 Iv Access IV DIRECTED TEO Sodium Chloride 0 ml 08/24/24 08:01 Normal Saline Flush 10 Ml Syr IVP PRN PRN Sodium Chloride 0 ml 08/24/24 08:30 08/24/24 09:20 Normal Saline Flush 10 Ml Syr IVP 10 ml BID TEO Administration Sodium Chloride 0 ml 08/24/24 08:01 Normal Saline 10 Ml Vial IJ DIRECTED PRN PFSH Active Problems Active Problems: Problem Status Onset Code Encounter for induction of labor Acute Z34.90 41 weeks gestation of Acute O48.0, Z3A.41 Susceptible to varicella (non-immune), currently Acute O09.899, Z28.39 Marijuana use Acute F12.90 Anxiety Chronic F41.9 Acute Z34.90 Medical History Medical History (Updated 08/24/24 @ 08:31 by Jayne De La Garza) Asthma Tobacco Smoking/Tobacco Use Status: Never Alcohol Alcohol Intake: never Substance Use Substance use: Occasionally Substance use type: marijuana Prental History History 2 1 Para 0 Hx # Term Pregnancies 0 Multiple births 0 Hx # Pregnancies 0 Ectopic pregnancies 0 AB induced 0 Hx Number of Living Children 0 AB spontaneous 0 Vital Signs and Lab Results Vital Signs Most Recent Vital Signs in EMR: Most Recent Vital Signs Temp Pulse Resp BP 36.7 C 82 14 112/78 08/24/24 08:06 08/24/24 08:08 08/24/24 08:06 08/24/24 08:08 Lab Results 08/24/24 08:20 Blood Type / Crossmatch: 2 Antibody Screen NEGATIVE 08/24/24 Complete Blood Count: 2 White Blood Count 15.31 10^3/uL (4.4-10.8) H 08/24/24 08:20 Red Blood Count 3.78 10^6/uL (3.93-5.22) L 08/24/24 08:20 Hemoglobin 12.7 g/dL (11.2-15.7) 08/24/24 08:20 Hematocrit 36.5 % (36.0-46.0) 08/24/24 08:20 Platelet Count 224 10^3/uL (130-400) 08/24/24 08:20 Complete Metabolic Panel: 2 No Data to Display Liver Function Panel: 2 No Data to Display Coagulation Panel: 2 No Data to Display Cardiac Panel: 2 No Data to Display Arterial Blood Gas: 2 No Data to Display Venous Blood Gas: 2 No Data to Display Pancreas Panel: 2 No Data to Display Thyroid Panel: 2 No Data to Display Infectious Disease: 2 No Data to Display Blood Cultures: 2 No Data to Display Toxicology Panel: 2 No Data to Display Panel: 2 No Data to Display Anesthesia Assessment and Plan Anesthesia History Personal History: No History of General Anesthesia Family History: No Family History of Anesthesia Complications Exercise Tolerance Exercise Tolerance: Metabolic Equivalents>4 Pertinent Negatives Pertinent Negatives: No Major Cardiovascular Symptoms or Complaints and No Major Pulmonary Symptoms or Complaints Cardiac & Pulmonary Exam Cardiac Exam: Normal S1/S2 Heart Sounds Pulmonary Exam: Clear Bilateral Breath Sounds Implantable Cardiac Device Does patient have a Pacemaker or an ICD?: No Airway Exam Known Difficult Airway: No Mallampati Class: 3 Mouth Opening: Normal (> 3cm) Thyromental Distance: Greater than 3 cm Neck Range of Motion: Full ROM Neck Circumference: Normal Teeth Condition: Normal Dentition ASA Classification ASA Score: ASA 2 Emergency Case?: No NPO Status NPO Status: Full Stomach Status Status: Confirmed Anesthesia Plan Resuscitation Status: Full Code Anesthesia Technique: Epidural Anesthesia Airway Planned: Natural Airway Pain Management: Epidural Monitors Used: Standard Monitors
[2024-08-24] MEDS: FentaNYL/ROPIvacaine 2 mcg/ml and 0.1% 200 ML CADD Cassette EP (12:26)
--- NOTE | 2024-08-24 12:31 | W.ANESNEU ---
Epidural/Spinal Catheter Date Performed: 08/24/24 Procedure Start: 11:42 Procedure Stop: 12:15 Requesting Provider: Jayne De La Garza Procedure Location: Obstetrics Reason Performed: Labor Epidural Standard Monitors Applied: Blood Pressure, SpO2 and See EMR for corresponding vital signs Patient Position: Sitting Sedation Given (Indicate Dose Given): No Sedation given Patient Mental Status: Awake Sterility: Hand Hygiene, Surgical Cap, Surgical Mask, Sterile Gloves, Sterile Drape/Sheet and Chlorhexidine Procedure Location: L3-L4 Interspace Epidural Needle: Tuohy 18 Gauge Needle Length: 3.5 Inch Needle Approach: Midline Epidural Procedure: Skin Prepped, Sterile Drape Placed, 1% Lidocaine to skin and subcutaneous tissue with 25G needle, Tuohy Needle placed, ALISON to Saline Used, Epidural Catheter Placed, Negative Heme, Negative CSF Flow and Tuohy Needle Removed Catheter Placed?: Catheter Placed Test Dose (Indicate Dose Given): 3ml 1.5% Lidocaine with 1:200K Epinephrine Given Loss of Resistance Depth (cm): 9 Catheter depth at skin (cm): 17 Dressing: Sorbaview Dressing Placed, Mastisol Used and Dressing reinforced with Tape Epidural Provider Bolus (Indicate Dose Given): Total bolus dose given in 3-5 ml divided doses and Total Ropivacaine 0.1% with Fentanyl 2mcg/ml Given from pump. (ml) Dose:: 3mL Additives (Indicate Dose Given ): None Infusion Medication: Medication Infusion Began Medication Infusion: Ropivacaine 0.1% with Fentanyl 2mcg/ml Maintenance Infusion Rate (ml/hour): 10 PCEA Bolus Dose (ml): 5 Block Level: N/A Paresthesia: None Ultrasound: Not Used Number of Attempts (See previous attempts in note section): 2 Procedure Tolerated: No Complications Procedure Outcome: Successful Performed By: Anna Trujillo
--- NOTE | 2024-08-24 12:34 | W.PM.OBNL1 ---
Date of service: 08/24/24 Time of Service: 12:34 Informed Consent Informed Consent: Induction of Labor (pitocon induction, pt consents) and Risk,Benefits,Alternatives Discussed Pelvic Exam Dilation: 3 Effacement (%): 100 station: -2 Position: LOP Cervix Position: mid Consistency: soft BISHOPS Score(Cervical Ripeness Score): 9 Contractions Monitor Mode: External Contraction Frequency(min): q3-4 Intensity: Mild/Moderate Fetus A Monitor: External (US) Heart Rate Baseline: 135 Variability: Moderate (6-25 BPM) Categories: Category I Accelerations: 15 X 15 Decelerations: None Amniotic Membrane Status: Intact Assessment and Plan Assessment and plan (1) Encounter for induction of labor: Status: Acute Assessment and plan: A: Primipara, early labor, IOL for postdates, Lundberg score now 9 Category 1 tracing, effective epidural P: Pt consents to pitocin induction, will consider AROM as well Anticipate Objective Abnormal lab results 08/24/24 Range/Units 08:20 WBC 15.31 H (4.4-10.8) 10^3/uL RBC 3.78 L (3.93-5.22) 10^6/uL MCV 97 H (80-95) fL MCH 33.6 H (27.0-33.0) pg Temp Pulse Resp BP Pulse Ox 98.1 F 89 14 123/74 97 08/24/24 08:06 08/24/24 12:26 08/24/24 08:06 08/24/24 12:26 08/24/24 11:59 Laboratory Results WBC 15.31 10^3/uL (4.4-10.8) H 08/24/24 08:20 RBC 3.78 10^6/uL (3.93-5.22) L 08/24/24 08:20 Hgb 12.7 g/dL (11.2-15.7) 08/24/24 08:20 Hct 36.5 % (36.0-46.0) 08/24/24 08:20 MCV 97 fL (80-95) H 08/24/24 08:20 MCH 33.6 pg (27.0-33.0) H 08/24/24 08:20 MCHC 34.8 % (32.0-36.0) 08/24/24 08:20 RDW 12.9 % (11.7-14.6) 08/24/24 08:20 Plt Count 224 10^3/uL (130-400) 08/24/24 08:20 MPV 11.0 fL (8.0-11.0) 08/24/24 08:20 ABO/Rh B Positive 08/24/24 08:20 Antibody Screen NEGATIVE 08/24/24 08:20 Vital Signs Reviewed: Yes Subjective Interval history since last seen: Epidural in place, pt feeling more relaxed, can still feel contractions but they feel like cramps now, drowsy and falling asleep
[2024-08-24] MEDS: Oxytocin/Normal Saline 30 UNIT/500 ML BAG 2 UNITS IV (13:19)
--- NOTE | 2024-08-24 14:04 | W.PM.OBNL1 ---
Date of service: 08/24/24 Time of Service: 14:04 Informed Consent Informed Consent: Induction of Labor (pitocon induction, pt consents) and Risk,Benefits,Alternatives Discussed Pelvic Exam Dilation: 4 Effacement (%): 100 station: -2 Consistency: soft Contractions Monitor Mode: External Contraction Frequency(min): q5-6 Intensity: Mild/Moderate Fetus A Monitor: Internal (FSE) Heart Rate Baseline: 135 Variability: Moderate (6-25 BPM) Categories: Category I Accelerations: Present Decelerations: None Amniotic Membrane Status: Ruptured Rupture Method: Artifical Amniotic Fluid: Clear Amount: small Date of Membrane Rupture: 08/24/24 Time of Membrane Rupture: 13:28 Assessment Note: One episode of spontaneous FHT decel to 80's, resolved with position change, 02 per mask and IV bolus. Pitocin has just been turned on and was immediately turned off, AROM done and FSE applied after explaining procedure ot pt and FOB Assessment and Plan Assessment and plan (1) Encounter for induction of labor: Status: Acute Assessment and plan: A: AROM and FSE applied after isolated episode of FHT decel to 80's FHT recovered with position change, 02 per mask, and small fluid bolus Pt comfortable with epidural, category 1 tracing resumed P: Will start pitocin after a period of category 1 tracing Objective Vital Signs Reviewed: Yes
--- NOTE | 2024-08-24 18:09 | W.PM.OBNL1 ---
Date of service: 08/24/24 Time of Service: 18:09 Informed Consent Informed Consent: Induction of Labor (pitocon induction, pt consents) and Risk,Benefits,Alternatives Discussed Pelvic Exam Dilation: 4 Effacement (%): 100 station: -2 Cervix Position: mid Contractions Monitor Mode: External Contraction Frequency(min): q2-3 Intensity: Moderate Fetus A Monitor: Internal (FSE) Heart Rate Baseline: 140 Variability: Minimal (1-5 BPM) Categories: Category II Decelerations: Prolonged (FHT to 90's x5 minutes, resolved with position change to sitting throne, not resolved by H&K or lateral positions) Amniotic Membrane Status: Ruptured Amniotic Fluid: Clear Assessment and Plan Assessment and plan (1) Encounter for induction of labor: Status: Acute Assessment and plan: A: overall category 1 tracing w/pit @ 8 u/min until 1755, 5 minute prolonged decel resolved with several position changes, FHT to baseline in sitting position category 2 tracing persists due to minimal variability, early decels noted Pitocin decreased by half to 4 u/min, cervix unchanged from last exam P: Reviewed tracing with Dr. Guevara, continue close observation/monitoring Consider insertion of IUPC if tracing returns to category 1 Objective Vital Signs Reviewed: Yes Subjective Interval history since last seen: epidural remains effective
[2024-08-24] MEDS: Azithromycin 500 MG VIAL (21:15)
[2024-08-24] MEDS: Sodium Citrate 30 ML CUP (21:15)
--- NOTE | 2024-08-24 21:20 | W.PM.OBNL1 ---
Date of service: 08/24/24 Time of Service: 21:20 Informed Consent Informed Consent: Induction of Labor (pitocon induction, pt consents) and Risk,Benefits,Alternatives Discussed Assessment and Plan Assessment and plan (1) Category II heart rate tracing during labor and delivery: Status: Acute Assessment and plan: We discussed that it seems as though this baby is not going to tolerate labor to the point of being able to have cervical change. Since she is remote from delivery I think it is reasonable to proceed with a C section. Pt agrees to this plan. The OR team, anesthesia and peds were notified. Abx ordered. Consent signed and questions answered. Objective Abnormal lab results 08/24/24 Range/Units 08:20 WBC 15.31 H (4.4-10.8) 10^3/uL RBC 3.78 L (3.93-5.22) 10^6/uL MCV 97 H (80-95) fL MCH 33.6 H (27.0-33.0) pg Temp Pulse Resp BP Pulse Ox 98.6 F 97 H 16 127/82 97 08/24/24 20:46 08/24/24 20:46 08/24/24 19:03 08/24/24 20:46 08/24/24 11:59 Laboratory Results WBC 15.31 10^3/uL (4.4-10.8) H 08/24/24 08:20 RBC 3.78 10^6/uL (3.93-5.22) L 08/24/24 08:20 Hgb 12.7 g/dL (11.2-15.7) 08/24/24 08:20 Hct 36.5 % (36.0-46.0) 08/24/24 08:20 MCV 97 fL (80-95) H 08/24/24 08:20 MCH 33.6 pg (27.0-33.0) H 08/24/24 08:20 MCHC 34.8 % (32.0-36.0) 08/24/24 08:20 RDW 12.9 % (11.7-14.6) 08/24/24 08:20 Plt Count 224 10^3/uL (130-400) 08/24/24 08:20 MPV 11.0 fL (8.0-11.0) 08/24/24 08:20 ABO/Rh B Positive 08/24/24 08:20 Antibody Screen NEGATIVE 08/24/24 08:20 Subjective Interval history since last seen: Pitocin was set at 8 and the pt experienced a prolonged decel to 100 for several minutes. The pitocin was turned off, the patient was repositioned and the baseline returned to normal range with minimal variability. This was her 3rd deceleration similar to this. She remains at 5cm dilated. She is accepting of a C section. Results Hemoglobin/Hematocrit: Hgb 12.7 g/dL (11.2-15.7) 08/24/24 08:20 Hct 36.5 % (36.0-46.0) 08/24/24 08:20 Abnormal Lab Findings: Abnormal Labs 08/24/24 08:20 WBC 15.31 H RBC 3.78 L MCV 97 H MCH 33.6 H
[2024-08-24] MEDS: ceFAZolin 2 GM/50 ML BAG 300 GM (22:04)
--- NOTE | 2024-08-24 22:20 | PLAC_PTH ---
PATIENT: Leslye Ordoñez LOC: OBS U#:[id number] AGE/SX: 23/F ROOM: OBS.301 RE08/24/[address]: Jayne De La Garza CNM : 2000 BED: A DIS: 08/27/2024 SPEC #: [id number] RECD: 08/25/24 12:42 STATUS: KINGSLEY REQ #: [id number] XIAO: 08/24/24 22:[address]: Gisselle Marquez DEPT: Surgical Specimen RECD BY: Linsey Asif ENTERED: 08/25/24 12:42 SP TYPE: PLAC OTHR DR: Jayne De La Garza CNM Tissues: 1 - PLACENTA (3RD TRIMESTER) Procedures: GROSS AND MICRO LEVEL 5 Comments: [id number]
[2024-08-24] MEDS: Bupivacaine 0.25% Pres-Free 30 ML VIAL ×2 (22:30→22:54)
--- NOTE | 2024-08-24 23:24 | ROE_ITS ---
Date of service: 08/24/24 Time of Service: 10:30 Operative Note Operative Note DATE OF PROCEDURE: 08/24/24 PRE-OP DIAGNOSIS: Cat 2 FHT remote from delivery POST-OP DIAGNOSIS: same PROCEDURE: PLTCS SURGEON: Gisselle Marquez ASSISTING SURGEON: Jayne De La Garza Refer to Anesthesia Record ESTIMATED BLOOD LOSS: 700 COMPLICATIONS: None Patient was transported to: floor Patient's condition: stable Indications: Pt underwent induction of labor with pitocin and amniotomy. She developed a Cat 2 FHT that resolved when pitocin was turned off. When this happened a 3rd time the decision was made to proceed with delivery. Findings: Normal appearing uterus, ovaries and tubes. Normal appearing placenta Female , apgars 8/9. Procedure Description: After informed consent was signed the patient was taken to the operating room. She was given spinal anesthesia, SCDs were placed on her legs and a darden catheter was introduced into her bladder. The heart rate was checked and was normal. She underwent abdominal and vaginal prep and was draped in the dorsal supine position with a leftward tilt. The patient was tested and spinal anesthesia was found to be adequate. A time out was performed. The skin was injected with bupivocaine along the length of the planned incision. A skin incision was made with the scalpel and carried down to the underlying layer of fascia with blunt dissection. The fascia was incised on either side of the midline and the fascial incision extended laterally with a combination of sharp and blunt dissection. The inferior edge of the fascia was grasped with elizabeth clamps and tented up and dissected down with a combination of sharp and blunt dissection. Then the superior edge of the fascial incision was grasped with elizabeth clamps and tented up and dissected down with a combination of sharp and blunt dissection. The rectus muscles were in the midline and the peritoneum was entered bluntly. The peritoneal incision was extended laterally with blunt dissection. The bladder blade was inserted. A transverse incision was made in the lower uterine segment with the scalpel. The incision was extended superiorly and inferiorly with blunt pressure. The infants head delivered with fundal pressure after extension of the skin incision followed by the shoulders and the rest of the body. The cord was milked toward the baby and after 1min it was clamped x2 and cut. The baby was handed to the lubricating machine tender. Cord blood was collected. The placenta delivered with fundal massage and gentle cord traction and appeared to be intact. The uterus was exteriorized and cleared of clots and debris. The uterine incision was closed with 0-vicryl in a running locked fashion with a second layer of suture imbricating the first. The lower uterine segment had a partial thickness tear of the uterine muscle down towards the cervix. This was reapproximated with 3-0 vicryl in a figure of 8 suture. Good hemostasis was noted. The abdomen was irrigated and some bleeding was noted in the left adnexa where the distal tube was adherent to the infundibulopelvic ligament just below the ovary. This was cauterized for good hemostasis. The uterus was placed back into the abdominal cavity. Clots were cleared from the peritoneal cavity with lap sponges. The incision was inspected once again and good hemostasis was noted. There was good hemostasis of the rectus muscles. The fascia was closed with 0- vicryl in a running unlocked fashion. The subcuticular layer was irrigated and closed with interrupted sutures of 3-0 vicryl. The skin was closed with 4-0 vicryl in a running subcuticular fashion. The incision was cleaned. Mastisol and steristrips were placed. A dressing was placed. The fundus was palpated to be firm. The patient was moved to the stretcher and taken to the recovery room in stable condition.
[2024-08-25] VITALS (32 sets, daily range): BP systolic 114–145; BP diastolic 64–100; PULSE 80–105; RESP 12–18; TEMP 36.6–37.1; O2SAT 96–99
[2024-08-25] MEDS: Normal Saline Flush 10 ML SYR IVP ×3 (06:03→18:22)
[2024-08-25] MEDS: Ketorolac 30 MG/ML VIAL IVP ×3 (06:03→18:21)
[2024-08-25 06:41] LABS: Abs Immature Grans 0.21 10^3/uL (0.0-0.06); Absolute Basophil Count 0.07 10^3/uL (0.0-0.2); Absolute Lymphocyte Count 1.16 10^3/uL (1.2-3.4); Basophils % 0.3 %; HCT 33.7 % (36.0-46.0); HGB 11.2 g/dL (11.2-15.7); Immature Grans % 0.9 %; MCHC 33.2 % (32.0-36.0); MCV 99 fL (80-95); MPV 11.2 fL (8.0-11.0); Monocytes % 6.2 %; Neutrophils % 87.6 %; Platelet Count 182 10^3/uL (130-400); RBC 3.39 10^6/uL (3.93-5.22); RDW 13.2 % (11.7-14.6); RDW-SD 47.3 fL; WBC 23.22 10^3/uL (4.4-10.8)
[2024-08-25 06:43] LABS: Absolute Monocyte Count 1.44 10^3/uL (0.1-0.8); Absolute Neutrophil Count 20.34 10^3/uL (1.2-6.7)
[2024-08-25 07:01] LABS: Diff Comment Agrees w/ Instrument; RBC Morphology Normal
--- NOTE | 2024-08-25 08:29 | W.ANESPOSTOP ---
Postoperative Evaluation Date, Time and Location Date Performed: 08/25/24 Time Performed: 08:15 Patient Location: Obstetrics Vital Signs Most Recent Imported Vital Signs: Most Recent Vital Signs Temp Pulse Resp BP Pulse Ox 37.0 C 90 12 128/76 96 08/25/24 07:40 08/25/24 07:40 08/25/24 07:40 08/25/24 07:40 08/25/24 07:40 Assessment Mental Status: Awake (Alert & Oriented to Patient Baseline) Airway and Respiratory Function: Patent airway with normal (patient baseline) respiratory exam Cardiovascular Function: Hemodynamically Stable Hydration Status: Adequately Hydrated Nausea & Vomiting: No Nausea or Vomiting Pain: Pt. Denies Any Pain Peripheral Nerve Block: Patient did not receive a nerve block
--- NOTE | 2024-08-25 12:53 | W.PM.OBPNV1 ---
Date of service: 08/25/24 Time of Service: 09:00 Assessment and Plan Assessment and plan (1) History of delivery: Assessment and plan: POD#1 s/p PCS, doing well. No significant concerns. Routine care. Subjective Subjective Narrative: Pt is doing well POD#1 s/p PCS for Cat 2 FHT remote from delivery. She says her pain is well controlled. She has minimal lochia. Tolerating oral intake without n/v. Baby is doing well. She is formula feeding. She denies questions in regards to her labor and CS. Exam Physical Exam Vital signs: Temp Pulse Resp BP Pulse Ox 98.6 F 90 12 128/76 96 08/25/24 07:40 08/25/24 07:40 08/25/24 07:40 08/25/24 07:40 08/25/24 07:40 Vital Signs Reviewed: Yes Constitutional Constitutional: no acute distress and cooperative Detailed HEENT Exam Head: Present normocephalic and atraumatic Respiratory Exam Respiratory Exam: Normal Abdominal Exam Abdomen: Tender (mildly) Comments: Incision clean, dry, intact Fundal Exam Fundus: Below Umbilicus and Firm Extremities Exam Extremity Exam: Edema (trace) Detailed Neurological Exam Neurological: Present alert, oriented X3 and CN II-XII intact Results Hemoglobin/Hematocrit: Hgb 11.2 g/dL (11.2-15.7) 08/25/24 06:00 Hct 33.7 % (36.0-46.0) L 08/25/24 06:00 Abnormal Lab Findings: Abnormal Labs 08/24/24 08/25/24 08:20 06:00 WBC 15.31 H 23.22 H RBC 3.78 L 3.39 L Hct 33.7 L MCV 97 H 99 H MCH 33.6 H MPV 11.2 H Absolute Neutrophils 20.34 H Absolute Lymphocytes 1.16 L Absolute Monocytes 1.44 H
[2024-08-25] MEDS: Calcium Carbonate *TUMS* 500 MG CHEW PO (15:45)
[2024-08-25] MEDS: Calcium Carbonate *TUMS* 500 MG CHEW 1000 MG PO (23:30)
[2024-08-26 02:05] VITALS: BP 117/62; PULSE 90; RESP 18; TEMP 36.6
[2024-08-26] MEDS: Acetaminophen 325 MG TAB 650 MG PO ×4 (02:36→22:20)
[2024-08-26 08:05] VITALS: BP 116/71; PULSE 81; RESP 16; TEMP 36.8; O2SAT 98
[2024-08-26] MEDS: Docusate Sodium 100 MG CAP PO ×2 (09:08→22:21)
[2024-08-26] MEDS: Ibuprofen 600 MG TAB PO ×3 (09:08→22:20)
--- NOTE | 2024-08-26 09:12 | W.PM.OBPNV1 ---
Date of service: 08/26/24 Time of Service: 10:00 Assessment and Plan Assessment and plan (1) History of delivery: Assessment and plan: day #1 status post primary low-transverse section. Overall doing well. No issues or concerns. Anticipate discharge 08/27/2024. Exam Physical Exam Vital signs: Temp Pulse Resp BP Pulse Ox 98.2 F 81 16 116/71 98 08/26/24 08:05 08/26/24 08:05 08/26/24 08:05 08/26/24 08:05 08/26/24 08:05 Narrative: Patient was seen and examined. Overall doing well. Comfortable with good pain control. Anticipate discharge home 08/27/2024 Constitutional Constitutional: no acute distress Respiratory Exam Respiratory Exam: Normal Cardiovascular Exam Cardiovascular Exam: Normal Abdominal Exam Comments: Soft, nontender, Mepilex in place Fundal Exam Fundus: Below Umbilicus Results Hemoglobin/Hematocrit: Hgb 11.2 g/dL (11.2-15.7) 08/25/24 06:00 Hct 33.7 % (36.0-46.0) L 08/25/24 06:00 Abnormal Lab Findings: Abnormal Labs 08/24/24 08/25/24 08:20 06:00 WBC 15.31 H 23.22 H RBC 3.78 L 3.39 L Hct 33.7 L MCV 97 H 99 H MCH 33.6 H MPV 11.2 H Absolute Neutrophils 20.34 H Absolute Lymphocytes 1.16 L Absolute Monocytes 1.44 H
[2024-08-26 10:00] LABS: Abs Immature Grans 0.23 10^3/uL (0.0-0.06); Absolute Basophil Count 0.03 10^3/uL (0.0-0.2); Absolute Neutrophil Count 10.64 10^3/uL (1.2-6.7); Basophils % 0.2 %; Eosinophils % 0.1 %; HCT 29.3 % (36.0-46.0); HGB 9.8 g/dL (11.2-15.7); Immature Grans % 1.5 %; Lymphocytes % 21.5 %; MCH 33.6 pg (27.0-33.0); MCHC 33.4 % (32.0-36.0); MCV 100 fL (80-95); MPV 10.4 fL (8.0-11.0); Neutrophils % 70.7 %; Platelet Count 167 10^3/uL (130-400); RBC 2.92 10^6/uL (3.93-5.22); RDW 13.2 % (11.7-14.6); RDW-SD 47.9 fL; WBC 15.05 10^3/uL (4.4-10.8)
[2024-08-26 10:01] LABS: Absolute Eosinophil Count 0.02 10^3/uL (0.0-0.7); Absolute Lymphocyte Count 3.24 10^3/uL (1.2-3.4)
[2024-08-26 14:09] VITALS: BP 118/76; PULSE 96; RESP 18; TEMP 36.4; O2SAT 97
[2024-08-26 16:19] VITALS: TEMP 36.8
[2024-08-26 16:21] VITALS: BP 131/68; PULSE 96; RESP 16; TEMP 36.8; O2SAT 100
[2024-08-27 00:11] VITALS: BP 133/75; PULSE 102; RESP 17; TEMP 36.8; O2SAT 99
[2024-08-27 07:35] VITALS: BP 136/91; PULSE 90; RESP 18; TEMP 36.7
[2024-08-27 07:53] VITALS: BP 136/91; PULSE 90; RESP 18; TEMP 36.7; O2SAT 98
[2024-08-27] MEDS: Docusate Sodium 100 MG CAP PO (08:17)
[2024-08-27] MEDS: Ibuprofen 600 MG TAB PO (08:17)
[2024-08-27] MEDS: Acetaminophen 325 MG TAB 650 MG PO (08:18)
--- NOTE | 2024-08-27 09:20 | W.PM.OBDISCH ---
Date of service: 08/27/24 Time of Service: 09:20 DS: Diagnosis Discharge Diagnosis (1) History of delivery: Discharge Plan Disposition Patient Disposition: Home Condition: Good Discharge Details Reason For Visit: Labor Admit Date/Time: 08/24/24 06:44 Admit Provider: Jayne De La Garza Attending Provider: Jayne De La Garza Primary Care Provider: Sravani,Unknown Hospital Course Hospital Course: Pt was admitted for induction of labor. She slowly progressed to 4cm but had a Cat 2 FHT and several prolonged decelerations so the decision was mode to proceed with section due to her being remote from delivery. She had an uncomplicated CS with routine post-op course. She was ready for discharge on POD#3 Home Meds and New Rx's Prescriptions: No Action Plus (calcium carb) 27 mg iron- 1 mg tablet 1 tab PO DAILY Qty: 90 0RF Discharge Instructions Activity:: No lifting >20lbs Equipment/Supplies:: No Equipment Needed Diet:: As Tolerated Discharge Orders Discharge Orders: Discharge Order (Routine); Ordered 08/27/24 Ordered By: Gisselle Marquez OB:DS Summary Contraception Discussed Contraception Discussed: Yes Contraceptive Plan: IUD, [place] Infant Gender-Baby A: Female weight: 8 lb 3.925 oz Status at Discharge Functional status at discharge: independent ambulation Overall status at discharge: patient is back to baseline Mental Status: mental status grossly normal Speech and Movement: speech and movement normal Mood: congruent mood Affect: normal affect Quality:SDOH Health Related Social Needs: Health related social needs problem related to primary support group(Z63.9) Exam Physical Exam Vital signs: Temp Pulse Resp BP Pulse Ox 98.1 F 90 18 136/91 H 98 08/27/24 07:53 08/27/24 07:53 08/27/24 07:53 08/27/24 07:53 08/27/24 07:53 PFSH All Active Problems (Updated 08/27/24 @ 09:29 by Gisselle Marquez MD) Routine follow-up (Acute) Marijuana use (Acute) Anxiety (Chronic) Medical History (Updated 08/27/24 @ 09:29 by Gisselle Marquez MD) Category II heart rate tracing during labor and delivery Asthma Surgical History (Updated 08/25/24 @ 12:58 by Gisselle Marquez MD) History of delivery 08/24/24 for Cat2 FHT remote from delivery Family History (Updated 04/16/24 @ 13:06 by Tsering Salinas CNM) Maternal Aunt Breast cancer Mother Back pain Father Anxiety Social History (Updated 05/16/24 @ 11:13 by Che Escobar MD) Smoking/Tobacco Use Status: Never Smoking risk assessment performed?: Yes Alcohol Intake: never Drug use: Occasionally Substance use type: marijuana Household members: significant other, family and other Details: Jose Angel, his aunt and her family. Housing: house Number of Children: 0 Education Level: high school Details: didn't enjoy school-would read science fiction during math class. current occupation: [employer] between jobs. Do you feel safe at home: Yes Do you feel safe in your relationship?: Yes Additional Social history: Raised in [facility]. Mom when she was 11yo, drug related. She was oldest of 3 three siblings whom she took care of. Stepfather remarried and moved to [place]. Raised by [facility] Met Terrance in , his dad when he was 11yo. They described themselves as initially trauma buddies. His aunt moved to [place] and her and Leslye moved with them. History History 1 Para 0 Hx # Term Pregnancies 0 Multiple births 0 Hx # Pregnancies 0 Ectopic pregnancies 0 AB induced 0 Hx Number of Living Children 0 AB spontaneous 0 DS: Data Vitals/I&O Vitals and I&O: Vital Signs Temperature 98.1 F 08/27/24 07:53 Temperature Source Oral 08/24/24 18:04 Temperature Source Oral 08/27/24 07:53 Pulse 90 08/27/24 07:53 Pulse Rhythm Regular 08/27/24 00:13 Respiratory Rate 18 08/27/24 07:53 Respiratory Depth Normal 08/27/24 00:13 Blood Pressure 136/91 H 08/27/24 07:53 Blood Pressure Mean 106 08/27/24 07:53 Pulse Oximetry 98 08/27/24 07:53 Oxygen Delivery Method Room Air 08/24/24 08:06 Oxygen Flow Rate 0 08/24/24 08:06 Pain Level 4 08/27/24 08:18 Comment up walking around at this time 08/27/24 00:11 Intake & Output 1008/26/24 08/27/24 11:59 23:59 11:59 Other: Urine Color Yellow Yellow Data Completed and Pending Labs on day of discharge: Labs from last 24 hours 08/26/24 09:55 WBC 15.05 H RBC 2.92 L Hgb 9.8 L Hct 29.3 L MCV 100 H MCH 33.6 H MCHC 33.4 RDW 13.2 Plt Count 167 MPV 10.4 Immature Gran % 1.5 Neutrophils % 70.7 Lymphocytes % 21.5 Monocytes % 6.0 Eosinophils % 0.1 Basophils % 0.2 Nucleated RBC % 0.0 Absolute Neutrophils 10.64 H Absolute Lymphocytes 3.24 Absolute Monocytes 0.90 H Absolute Eosinophils 0.02 Absolute Basophils 0.03
--- NOTE | 2024-08-27 09:28 | W.PM.OBPNV1 ---
Date of service: 08/27/24 Time of Service: 09:28 Assessment and Plan Assessment and plan (1) Routine follow-up: Status: Acute Assessment and plan: Pt is doing very well POD#3 s/p PCS for cat2 FHT remote from delivery. She plans an IUD for contraception. She has a visit scheduled next week to remove her dressing and check the incision. Exam Physical Exam Vital signs: Temp Pulse Resp BP Pulse Ox 98.1 F 90 18 136/91 H 98 08/27/24 07:53 08/27/24 07:53 08/27/24 07:53 08/27/24 07:53 08/27/24 07:53 Vital Signs Reviewed: Yes Constitutional Constitutional: no acute distress and cooperative Detailed HEENT Exam Head: Present normocephalic and atraumatic Respiratory Exam Respiratory Exam: Normal Abdominal Exam Abdomen: Tender (mildly) Comments: Dressing clean, dry Fundal Exam Fundus: Below Umbilicus and Firm Extremities Exam Extremity Exam: negative Edema Detailed Neurological Exam Neurological: Present alert, oriented X3 and CN II-XII intact Results Hemoglobin/Hematocrit: Hgb 9.8 g/dL (11.2-15.7) L 08/26/24 09:55 Hct 29.3 % (36.0-46.0) L 08/26/24 09:55 Abnormal Lab Findings: Abnormal Labs 08/24/24 08/25/24 08/26/24 08:20 06:00 09:55 WBC 15.31 H 23.22 H 15.05 H RBC 3.78 L 3.39 L 2.92 L Hgb 9.8 L Hct 33.7 L 29.3 L MCV 97 H 99 H 100 H MCH 33.6 H 33.6 H MPV 11.2 H Absolute Neutrophils 20.34 H 10.64 H Absolute Lymphocytes 1.16 L Absolute Monocytes 1.44 H 0.90 H
[2024-08-27] MEDS: Varicella Virus Vaccine (Live) 0.5 ML SC (09:36)
== END 2024-08-27 10:35 | disposition home or self-care (01) | DRG 787 ==
PROVIDERS: Obstetrics & Gynecology; Admitting Provider Advanced Practice Midwife; Visit Provider Advanced Practice Midwife
PROC: 10D00Z1 Extraction of Products of Conception, Low, Open Approach (ICD-10-PCS; CPT 59514; principal; 2024-08-24 21:20)
DX: O48.0 Post-term pregnancy (principal); O99.324 Drug use complicating childbirth; Z37.0 Single live birth; Z3A.41 41 weeks gestation of pregnancy; O76 Abnormality in fetal heart rate and rhythm complicating labor and delivery; J45.909 Unspecified asthma, uncomplicated; F41.9 Anxiety disorder, unspecified; F12.91 Cannabis use, unspecified, in remission; O99.344 Other mental disorders complicating childbirth; O99.52 Diseases of the respiratory system complicating childbirth
CPT/HCPCS: 59514; 36415; 85027; 86850; 86900; 86901; 90716; 85025; 88307; J0131; J0456; J0665; J0690; J1100; J1885; J2274; J2371; J2405; J3010

== ENCOUNTER 2025-04-14 20:44 | Emergency (ER) | payer MEDICAID, SELFPAY ==
[2025-04-14 20:47] VITALS: BP 142/78; PULSE 69; RESP 19; TEMP 36.6; O2SAT 98
[2025-04-14 20:54] VITALS: BP 142/78; PULSE 69; RESP 19; TEMP 36.6; O2SAT 98
[2025-04-14] MEDS: Penicillin V POTASSIUM 500 MG TAB PO (21:37)
[2025-04-14] MEDS: MORPHine IR 15 MG TAB PO (21:37)
[2025-04-14] MEDS: Benzocaine 20% Gel 30 GM JAR MM (21:37)
--- NOTE | 2025-04-14 22:17 | W.ED.GENAD ---
Discharge Plan Disposition Patient Disposition: Home Condition: Stable Discharge Details Clinical Impression: Pain, dental Primary Care Provider: Unknown,Unknown ED Provider: Trudy Robertson Home Meds and New Rx's Prescriptions: New penicillin V potassium 500 mg tablet 500 mg PO QID 7 Days Qty: 28 0RF No Action Mirena 21 mcg/24hr (up to 8 yrs) 52 mg intrauterine device 1 device intrauterine ONCE Rx Instructions: as a single dose sertraline 50 mg tablet 50 mg PO DAILY Qty: 60 3RF Discharge Instructions Instructions: Dental Pain Additional Instructions: Continue Motrin and Tylenol for pain You can also use the topical benzocaine provided as well start the antibiotic as prescribed follow with a dentist HPI General Date/Time Provider Initiated Documentation: 04/14/25 21:21. Limitations to Documentation: no limitations. Information obtained by: patient. HPI Narrative: 24-year-old female without significant past medical history presents for evaluation of dental pain. She reports that the pain started this morning and has been persistent constant and severe throughout the day. She has taken Tylenol without significant relief. She reports pain is located in the posterior left upper molar. She states that she has a broken tooth there and has been scheduled for evaluation and management by the dentist several times that evaluation has been postponed due to other medical problems. She denies any facial swelling, fever, drainage from the area change in voice or difficulty or painful swallowing. Related Data Home Medications ?Medication ?Instructions ?Recorded ?Confirmed levonorgestrel 21 mcg/24 hr (up to 1 device intrauterine ONCE 10/05/24 04/14/25 8 years) 52 mg intrauterine device (Mirena) sertraline 50 mg tablet 50 mg PO DAILY #60 tabs 10/06/24 04/14/25 penicillin V potassium 500 mg 500 mg PO QID 7 days #28 tabs 04/14/25 tablet Previous Rx's ?Medication ?Instructions ?Recorded sertraline 50 mg tablet 50 mg PO DAILY #60 tabs 10/06/24 penicillin V potassium 500 mg 500 mg PO QID 7 days #28 tabs 04/14/25 tablet Allergies Allergy/AdvReac Type Severity Reaction Status Date / Time No Known Allergies Allergy Verified 04/14/25 20:49 General Stated Complaint: DentalOral DAWN: 4 Exam Narrative Exam Narrative: Review of Systems: All systems reviewed & are unremarkable except as noted in HPI and below Well-developed, crying NCAT PERRL, normal conjunctiva No facial swelling Tooth 16 fractured with tenderness to palpation, no gum swelling or tenderness of the gum Course Vital Signs Vital signs: Vital Signs Temperature 36.6 C 04/14/25 20:47 Pulse 69 04/14/25 20:47 Respiratory Rate 19 04/14/25 20:47 Blood Pressure 142/78 H 04/14/25 20:47 Pulse Oximetry 98 04/14/25 20:47 Temperature 36.6 C 04/14/25 20:54 Temperature Source Oral 04/14/25 20:54 Pulse 69 04/14/25 20:54 Respiratory Rate 19 04/14/25 20:54 Blood Pressure 142/78 H 04/14/25 20:54 Blood Pressure Position Sitting 04/14/25 20:54 Pulse Oximetry 98 04/14/25 20:54 Oxygen Delivery Method Room Air 04/14/25 20:54 Oxygen Flow Rate 0 04/14/25 20:47 Pain Level 10 04/14/25 20:54 Medical Decision Making Emergent evaluation of dental pain. Initial differential includes dental carry, odontogenic abscess, dental trauma. Patient has a known broken tooth and has been present for quite some time and has not been managed by dentist. At this time I do not see any signs or symptoms concerning for an acute infection that requires drainage and she has no facial swelling, no airway involvement. I provided benzocaine for topical pain control as well is a single dose of morphine given in the emergency department, given her level of severe pain described. Recommend continued Motrin and Tylenol at home. Will give prophylactic penicillin to prevent abscess development recommend close follow-up with the dentist Quality:SDOH Health Related Social Needs: No Data to Display PFSH All Active Problems (Updated 04/14/25 @ 21:22 by Trudy Robertson MD) Pain, dental (Acute) Presence of IUD (Acute) care following delivery (Acute) Fungal skin infection (Acute) depression (Acute) Marijuana use (Acute) Anxiety (Chronic) Medical History Category II heart rate tracing during labor and delivery Asthma Surgical History History of delivery 08/24/24 for Cat2 FHT remote from delivery Family History Maternal Aunt Breast cancer Mother Back pain Father Anxiety Social History Smoking/Tobacco Use Status: Never Smoking risk assessment performed?: Yes Alcohol Intake: never Drug use: Occasionally Substance use type: marijuana Household members: significant other, family and other Details: Jose Angel, his aunt and her family. Housing: house Number of Children: 0 Education Level: high school Details: didn't enjoy school-would read science fiction during math class. current occupation: [employer] between jobs. Do you feel safe at home: Yes Do you feel safe in your relationship?: Yes Additional Social history: Raised in [facility]. Mom when she was 11yo, drug related. She was oldest of 3 three siblings whom she took care of. Stepfather remarried and moved to [place]. Raised by [facility] [place] [place]. Met Terrance in , his dad when he was 11yo. They described themselves as initially trauma buddies. His aunt moved to [place] and her and Leslye moved with them. History History 1 Para 1 Hx # Term Pregnancies 1 Multiple births 0 Hx # Pregnancies 0 Ectopic pregnancies 0 AB induced 0 Hx Number of Living Children 1 AB spontaneous 0 Past Pregnancies Del. Date GA/Weeks # Preg Succ Route Wgt Sex Labor Lgth Anesthesia Location [facility] 08/24/24 41 No Yes Female regional MD [facility]; MAYRA Adler Delivery Date: 08/24/24 Last Updated by: Jany Magaña LPN Induced postdates; intolerance of Pitocin; Developed Cat 2 FHT; resolved when Pit stopped; x3, decision made to deliver via
== END 2025-04-14 21:43 | disposition home or self-care (01) ==
PROVIDERS: Emergency Provider Emergency Medicine
DX: K08.89 Other specified disorders of teeth and supporting structures (principal)
CPT/HCPCS: 99283

== ENCOUNTER 2025-04-27 09:34 | Emergency (ER) | payer MEDICAID, SELFPAY ==
[2025-04-27 09:38] VITALS: BP 117/94; PULSE 59; RESP 20; TEMP 36.6; O2SAT 99
[2025-04-27 09:42] VITALS: BP 117/94; PULSE 59; RESP 20; TEMP 36.6; O2SAT 99
--- NOTE | 2025-04-27 10:08 | W.ED.GENAD ---
Discharge Plan Disposition Patient Disposition: Home Condition: Good Discharge Details Clinical Impression: Pain, dental, Fracture of tooth Primary Care Provider: Unknown,Unknown ED Provider: Nathaly Sharma Home Meds and New Rx's Prescriptions: Continued Mirena 21 mcg/24hr (up to 8 yrs) 52 mg intrauterine device 1 device intrauterine ONCE Rx Instructions: as a single dose sertraline 50 mg tablet 50 mg PO DAILY Qty: 60 3RF Discontinued penicillin V potassium 500 mg tablet 500 mg PO Q6H Patient Comments: TAKE ONE TABLET BY MOUTH FOUR TIMES A DAY FOR 7 DAYS, missed mult doses, still taking as of 04/27 Discharge Instructions Instructions: Fractured Tooth (DC), Lorazepam Additional Instructions: As we discussed, do not see signs of acute infection. Rather, I believe that the nerve associated with your broken tooth is exposed and was causing so much discomfort. Please continue to encourage hydration. You may use Tylenol and ibuprofen as needed for discomfort. Please take as directed on the packaging. Please keep your appointment tomorrow with your dentist even if your pain is improving. I have provided you with 1 tablet of 0.5 mg Ativan which should help with your dental anxiety. Please only take this if you have somebody driving you to the appointment. Do not drink alcohol while taking this and keep the medication in a safe place. If you develop any fever/chills, inability stay hydrated, swelling or other new/worsening symptom please seek care urgently once again. If the wax does come dislodged you may reapply as we discussed. Stand Alone Forms: Work Release HPI General Date/Time Provider Initiated Documentation: 04/27/25 09:39. Limitations to Documentation: no limitations. Information obtained by: patient, RN notes reviewed and old records reviewed. History of Present Illness 24 year old F presents to the emergency department with the chief complaint of left upper dental pain, described as severe and similar to prior episodes, with intensity rated at 10. Quality is described as stabbing, and is localized to the mouth. Patient reports no radiation (in mouth left side, no radiation elsewhere). Patient started experiencing this day(s) and it has been constant. Medication improves symptom(s), No exacerbating factors reported . Patient notes no other symptoms.. Patient did receive the following treatments prior to arrival, none (has not taken anything today) Related Data Home Medications ?Medication ?Instructions ?Recorded ?Confirmed levonorgestrel 21 mcg/24 hr (up to 1 device intrauterine ONCE 10/05/24 04/27/25 8 years) 52 mg intrauterine device (Mirena) sertraline 50 mg tablet 50 mg PO DAILY #60 tabs 10/06/24 04/27/25 Previous Rx's ?Medication ?Instructions ?Recorded sertraline 50 mg tablet 50 mg PO DAILY #60 tabs 10/06/24 Allergies Allergy/AdvReac Type Severity Reaction Status Date / Time No Known Allergies Allergy Verified 04/27/25 09:36 General Stated Complaint: DentalOral DAWN: 4 Review of Systems Constitutional Constitutional: Reports as per HPI, Denies chills, Denies fever(s) and Denies headache(s) ENT Ears, Nose, Mouth, and Throat: Reports as per HPI, Reports dental pain, Denies dysphagia, Denies dry mouth, Denies otalgia, Reports facial pain, Denies headache(s), Denies hoarseness, Denies nasal congestion, Denies odynophagia and Denies sore throat Respiratory Respiratory: Reports as per HPI and Denies cough Gastrointestinal Gastrointestinal: Reports as per HPI, Denies dysphagia, Denies nausea, Denies odynophagia and Denies vomiting Integumentary/Breasts Skin/Breast: Denies erythema Neurologic Neurologic: Reports as per HPI and Denies headache(s) Exam Const General: cooperative, healthy appearing, uncomfortable (holding left cheek), no acute distress, well developed, well groomed and anxious Nutritional Appearance: average body habitus and well nourished Orientation: alert and awake [facility] Head: normal to inspection, normocephalic and atraumatic General nose exam: external nose normal and nares normal Face and sinus: normal facial exam, sinuses nontender and face symmetric Mouth: oral mucosae normal, lip normal, tongue normal, oropharynx normal, moist mucous membranes, no audible dysphonia, no drooling, no muffled voice, no trismus and No restricted motion Teeth and gingiva: abnormal dentition (fractured #16 tooth, posterior side), gingiva normal and fair dentition Throat: posterior oropharynx normal, tonsils normal and uvula midline Eyes General: appearance normal, both eyes and all related structures Neck Neck: normal visual inspection, full ROM, no lymphadenopathy, supple and no anterior neck swelling Resp Effort & Inspection: normal respiratory effort, able to speak in complete sentences and no respiratory distress Cardio Rate: regular rate Rhythm: regular rhythm Skin General skin exam: no rashes or lesions noted Trauma: no lacerations or abrasions Neuro General: patient alert and patient awake Cognition: normal cognition Speech: speech normal Gait: normal gait Course Vital Signs Vital signs: Vital Signs Temperature 36.6 C 04/27/25 09:38 Pulse 59 L 04/27/25 09:38 Respiratory Rate 20 04/27/25 09:38 Blood Pressure 117/94 H 04/27/25 09:38 Pulse Oximetry 99 04/27/25 09:38 Temperature 36.6 C 04/27/25 09:42 Temperature Source Oral 04/27/25 09:42 Pulse 59 L 04/27/25 09:42 Respiratory Rate 20 04/27/25 09:42 Blood Pressure 117/94 H 04/27/25 09:42 Blood Pressure Position Sitting 04/27/25 09:42 Pulse Oximetry 99 04/27/25 09:42 Oxygen Delivery Method Room Air 04/27/25 09:42 Oxygen Flow Rate 0 04/27/25 09:42 Pain Level 10 04/27/25 09:42 Medical Decision Making Patient is a pleasant 24-year-old female presented with chief complaint of left upper dental pain. She was seen here earlier this month for the same. Was noted to have a fractured #16 tooth. The same area is tender today and she reports the pain has been greatly increasing over the past 24 hours. Has a dental appointment tomorrow for further evaluation and management. States that she has been having relief with Tylenol and/or ibuprofen but has not taken anything today. Left work to be will come here to be evaluated. Has not had any fevers or chills. No redness or swelling. Has been able to eat or drink on the contralateral side. As last seen by dentist about 1 year ago. On exam, patient appears nontoxic. Hemodynamically stable. Does not appear acutely septic. Do not see any indication of tonsillar abscess, deep space infection, spreading infection or abscess. There is no discoloration, fluctuance or swelling. However, patient is very tender at that broken tooth described above. No swelling under the tongue to suggest Paulo. Pain seems to be primarily associated with fractured tooth, likely associated with an exposed nerve. Patient is profoundly anxious about any dental procedures. We did discuss a block which seems very anxious to do so. I am concerned that having this completed may delay her from receiving care tomorrow tomorrow either from preventive symptoms or from increased anxiety associated with injection. She reports that the injection is typically what causes her to have such profound anxiety and ultimately leads her to not receiving appropriate dental care. Instead we will give Tylenol and ibuprofen to help with discomfort. I also discussed covering the fractured area to protect the nerve and can do so with a dental wax. Discussed this plan with the patient who is in agreement. Did discuss that placing the wax itself will initially be uncomfortable but hopefully will lead to more lasting relief until she can be seen tomorrow. After application of the dental wax as well as giving patient Tylenol ibuprofen, she reports she is feeling much improved. She feels ready for discharge at this time. Again, I am concerned that patient may not get the appropriate care with a dentist given the level she is expressing of her anxiety. Therefore half milligram of Ativan was sent home with the patient for preprocedure anxiolysis. Her is driving her to the appointment and we discussed safety protocols with this medication. Work note given at patient's request. Return precautions were discussed. Patient is at home with the remaining wax so that she is able to reapply she does fall off. All of her questions and concerns were addressed and she is in agreement with plan. Radha [facility] All Active Problems (Updated 04/27/25 @ 10:18 by BRANDO Brandt) Fracture of tooth (Acute) Pain, dental (Acute) Presence of IUD (Acute) care following delivery (Acute) Fungal skin infection (Acute) depression (Acute) Marijuana use (Acute) Anxiety (Chronic) Medical History Category II heart rate tracing during labor and delivery Asthma Surgical History History of delivery 08/24/24 for Cat2 FHT remote from delivery Family History Maternal Aunt Breast cancer Mother Back pain Father Anxiety Social History Smoking/Tobacco Use Status: Never Smoking risk assessment performed?: Yes Alcohol Intake: never Drug use: Occasionally Substance use type: marijuana Household members: significant other, family and other Details: Jose Angel, his aunt and her family. Housing: house Number of Children: 0 Education Level: high school Details: didn't enjoy school-would read science fiction during math class. current occupation: [employer]. [employer] between jobs. Do you feel safe at home: Yes Do you feel safe in your relationship?: Yes Additional Social history: Raised in [facility]. Mom when she was 11yo, drug related. She was oldest of 3 three siblings whom she took care of. Stepfather remarried and moved to [place]. Raised by [facility] [place]. Met Terrance in , his dad when he was 11yo. They described themselves as initially trauma buddies. His aunt moved to [place] and her and Leslye moved with them. History History 1 Para 1 Hx # Term Pregnancies 1 Multiple births 0 Hx # Pregnancies 0 Ectopic pregnancies 0 AB induced 0 Hx Number of Living Children 1 AB spontaneous 0 Past Pregnancies Del. Date GA/Weeks # Preg Succ Route Wgt Sex Labor Lgth Anesthesia Location Prov Complic 08/24/24 41 No Yes Female regional MD [facility]; [facility] Adler Delivery Date: 08/24/24 Last Updated by: Jany Magaña LPN Induced postdates; intolerance of Pitocin; Developed Cat 2 FHT; resolved when Pit stopped; x3, decision made to deliver via
[2025-04-27] MEDS: Ibuprofen 600 MG TAB PO (10:09)
[2025-04-27] MEDS: Acetaminophen 500 MG TAB 1000 MG PO (10:09)
[2025-04-27] MEDS: LORazepam 0.5 MG TAB PO (10:23)
== END 2025-04-27 10:24 | disposition home or self-care (01) ==
LOC: ER 10:26
PROVIDERS: Emergency Provider Physician Assistant
DX: S02.5XXA Fracture of tooth (traumatic), initial encounter for closed fracture (principal); X58.XXXA Exposure to other specified factors, initial encounter
CPT/HCPCS: 99283

== ENCOUNTER 2025-05-01 14:23 | Emergency (ER) | payer MEDICAID, SELFPAY ==
[2025-05-01 14:28] VITALS: BP 119/75; PULSE 73; RESP 18; TEMP 36.9; O2SAT 98
--- NOTE | 2025-05-01 14:44 | ED.GENADUL_ITS ---
Discharge Plan Disposition Patient Disposition: Home Condition: Stable Discharge Details Clinical Impression: Fracture of tooth, Pain, dental Primary Care Provider: Unknown,Unknown ED Provider: Danielle Cheng Home Meds and New Rx's Prescriptions: No Action Mirena 21 mcg/24hr (up to 8 yrs) 52 mg intrauterine device 1 device intrauterine ONCE Rx Instructions: as a single dose sertraline 50 mg tablet 50 mg PO DAILY Qty: 60 3RF amoxicillin 500 mg capsule 500 mg PO Q6H Patient Comments: TAKE TWO CAPSULES BY MOUTH IMMEDIATELY THEN 1 CAPSULE EVERY 6 HOURS UNTIL GONE Discharge Instructions Instructions: Dental Pain (DC) Additional Instructions: You were seen in the emergency department today for evaluation of ongoing dental pain due to a tooth fracture. In our department had a full physical examination that was reassuring, your wax was replaced, and I do recommend that you continue to have your family members assist with this when needed. Please use therapeutic dosing of Tylenol (acetaminophen) & Advil (ibuprofen) in an alternating fashion as follows: Take 1000mg of Tylenol every 6 hours without missing doses- that is 4 times per day. Raymond in between the Tylenol doses, take 600mg of Advil also on a 6 hour schedule, that is also 4 times per day. With this strategy, you will be taking something for fever/pain as often as every 3 hours. The daily maximum dosing of Tylenol is 4000mg, and the daily maximum dosing of Advil is 2400mg. Please note that some common cold medications & prescription pain medications may contain acetaminophen and you need to read OTC drug labels and factor that in to maximum daily doses. You can also continue to use your heat packs, and should trial [id number] clove oil, as this has been successful in managing this kind of dental pain and several patients in the past. I also provided you with a short course of oxycodone which you can take for breakthrough pain, please avoid driving or caring for your infant as this medication can make you fatigued. Please keep your dental appointment, and thank you for allowing us to be part of your care. HPI General Mode of arrival: ambulatory . Date/Time Provider Initiated Documentation: 05/01/25 14:27 . Limitations to Documentation: no limitations . Information obtained by: patient and old records reviewed . HPI Narrative: This is a 24-year-old female patient presenting for ongoing dental pain in the setting of a known tooth fracture with exposed nerve. The patient was seen in our emergency department on the , at which time she had a dental appointment the next day, had tooth wax placed. She reports that at her dental appointment she was referred to oral surgery, had difficulty getting in with that department, and ultimately scheduled for an extraction at her dentist on 12 May. She presents today with worsening pain, and an inability to place the wax over her tooth on her own due to pain. She has been alternating Tylenol and ibuprofen and using heat to good effect. She was started on Augmentin and has been taking that medication as prescribed. She reports that her family member thought the side of her face looked more swollen than is typical. She has not had fever, vision changes, or difficulty maintaining her oral intake. Related Data Home Medications ?Medication ?Instructions ?Recorded ?Confirmed levonorgestrel 21 mcg/24 hr (up to 1 device intrauteri ne ONCE 10/05/24 05/01/25 8 years) 52 mg intrauterine device (Mirena) sertraline 50 mg tablet 50 mg PO DAILY #60 tabs 120 01/2505/01/25 amoxicillin 500 mg capsule 500 mg PO Q6H 05/01/2504/05 Previous Rx's ?Medication ?Instructions ?Recorded sertraline 50 mg tablet 50 mg PO DAILY #60 tabs 0 01/25 Allergies Allergy/AdvReac Type Severity Reaction Status Date / Time No Known Allergies Allergy Verified 05/01/25 14:27 General Stated Complaint: DentalOral DAWN: 4 Exam Narrative Exam Narrative: Gen: Awake and alert, in no apparent distress HEENT: Non-icteric sclera, PERRL, EOMs are full and without entrapment or nystagmus. No significant facial swelling or overlying skin changes noted. The patient does have a fracture appreciated to the right upper back molar, no surrounding redness of the gums nor periapical abscesses Neck: Supple, full range of motion Lungs: No apparent respiratory distress, normal respiratory effort. CV: Appears well perfused Abdomen: Non-distended MSK: Moves 4 extremities without apparent limitation in ROM Skin: Visualized skin without rashes, cyanosis. Neuro: Normal Gait, no obvious focal deficits or facial asymmetry. Speaks in full, clear sentences. Psych: Appropriate for situation. Course Vital Signs Vital signs: Vital Signs Temperature 36.9 C 05/01/25 14:28 Pulse 73 05/01/25 14:28 Respiratory Rate 18 05/01/25 14:28 Blood Pressure 119/75 05/01/25 14:28 Pulse Oximetry 98 05/01/25 14:28 Temperature 36.9 C 05/01/25 14:28 Temperature Source Oral 05/01/25 14:28 Pulse 73 05/01/25 14:28 Respiratory Rate 18 05/01/25 14:28 Blood Pressure 119/75 05/01/25 14:28 Blood Pressure Position Supine 05/01/25 14:28 Pulse Oximetry 98 05/01/25 14:28 Oxygen Delivery Method Room Air 05/01/25 14:28 Oxygen Flow Rate 0 05/01/25 14:28 Pain Level 10 05/01/25 14:28 Medical Decision Making This is a 24-year-old female patient presenting for evaluation of ongoing tooth pain. My differential includes but is not limited to dental fracture, nerve exposure, consider dental infection and periapical abscess though her exam is reassuring and she is already on appropriate antibiosis. I note no physical exam evidence concerning for deeper space infection such as cavernous sinus thrombosis, retropharyngeal abscess, Paulo's angina, etc. She reassuringly has no hemodynamic instability, fever, or tachycardia to suggest systemic infection such as sepsis or bacteremia. I replaced the patient's bone wax, and provided her with a dose of oxycodone to supplement the Tylenol and ibuprofen she is already taking. I recommended that she trial [id number] clove oil, and call her dentist on Saturday to discuss a sooner appointment. I provided her with a short take-home course of oxycodone for breakthrough pain. At this time, the patient has had a full medical evaluation and is safe for discharge to home. They are hemodynamically stable, ambulatory, and tolerating PO. They are understanding of the follow-up plan and return precautions. They left our facility without incident. Danielle Cheng MD [facility] All Active Problems (Updated 05/01/25 @ 15:01 by Danielle Cheng MD) Fracture of tooth (Acute) Pain, dental (Acute) Presence of IUD (Acute) care following delivery (Acute) Fungal skin infection (Acute) depression (Acute) Marijuana use (Acute) Anxiety (Chronic) Medical History Category II heart rate tracing during labor and delivery Asthma Surgical History History of delivery 08/24/24 for Cat2 FHT remote from delivery Family History Maternal Aunt Breast cancer Mother Back pain Father Anxiety Social History Smoking/Tobacco Use Status: Never Smoking risk assessment performed?: Yes Alcohol Intake: never Drug use: Occasionally Substance use type: marijuana Household members: significant other, family and other Details: Jose Angel, his aunt and her family. Housing: house Number of Children: 0 Education Level: high school Details: didn't enjoy school-would read science fiction during math class. current occupation: [employer] between jobs. Do you feel safe at home: Yes Do you feel safe in your relationship?: Yes Additional Social history: Raised in [facility]. Mom when she was 11yo, drug related. She was oldest of 3 three siblings whom she took care of. Stepfather remarried and moved to [place]. Raised by [facility]. Met Terrance in , his dad when he was 11yo. They described themselves as initially trauma buddies. His aunt moved to [place] and her and Leslye moved with them. History History 1 Para 1 Hx # Term Pregnancies 1 Multiple births 0 Hx # Pregnancies 0 Ectopic pregnancies 0 AB induced 0 Hx Number of Living Children 1 AB spontaneous 0 Past Pregnancies Del. Date GA/Weeks # Preg Succ Route Wgt Sex Labor Lgth Anesth esia Location Prov Complic 08/24/24 41 No Yes Female regional Carin yen MD; MAY[facility] Adler Delivery Date: 08/24/24 Last Updated by: Jany Magaña LPN Induced postdates; intolerance of Pitocin; Developed Cat 2 FHT; resolved when Pit stopped; x3, decision made to deliver via
[2025-05-01] MEDS: oxyCODONE 5 MG TAB PO (14:52)
[2025-05-01 15:13] VITALS: BP 119/75; PULSE 73; RESP 18; TEMP 36.9; O2SAT 98
== END 2025-05-01 15:11 | disposition home or self-care (01) ==
LOC: ER 15:04
PROVIDERS: Emergency Provider Emergency Medicine
DX: S02.5XXA Fracture of tooth (traumatic), initial encounter for closed fracture (principal); K08.89 Other specified disorders of teeth and supporting structures; X58.XXXA Exposure to other specified factors, initial encounter
CPT/HCPCS: 99283